=== PATIENT | male | born 1950 | race Caucasian/White ===

== ENCOUNTER 2016-12-13 11:12 | Outpatient (CLI) | payer MEDICARE, OTHER | END 2016-12-13 11:13 | disposition home or self-care (01) | DX: E11.65 Type 2 diabetes mellitus with hyperglycemia (principal); Z79.899 Other long term (current) drug therapy ==

== ENCOUNTER 2017-03-23 10:20 | Outpatient (CLI) | payer MEDICARE, OTHER | END 2017-03-23 10:21 | disposition home or self-care (01) | DX: E11.9 Type 2 diabetes mellitus without complications (principal); Z79.899 Other long term (current) drug therapy ==

== ENCOUNTER 2017-07-09 10:01 | Outpatient (CLI) | payer MEDICARE, OTHER ==
[2017-07-09 18:06] LABS: BASOPHILS # (AUTO) 0.1 10^3/uL (0.0-0.1); EOSINOPHILS # (AUTO) 0.6 10^3/uL (0.0-0.7); EOSINOPHILS % (AUTO) 8.3 %; HCT - HEMATOCRIT 42.7 % (42.0-52.0); HGB - HEMOGLOBIN 14.5 g/dL (14.0-18.0); LYMPHOCYTES # (AUTO) 1.9 10^3/uL (1.5-3.5); LYMPHOCYTES % (AUTO) 26.8 %; MEAN CORPUSCULAR HEMOGLOBIN 30.4 pg (27.0-31.0); MEAN CORPUSCULAR VOLUME 89.5 fL (80.0-94.0); MEAN PLATELET VOLUME 8.6 fL (7.4-11.4); MONOCYTES # (AUTO) 0.7 10^3/uL (0.0-1.0); MONOCYTES % (AUTO) 10.3 %; NEUTROPHILS # (AUTO) 3.9 10^3/uL (1.5-6.6); NEUTROPHILS % (AUTO) 53.6 %; RED BLOOD COUNT 4.77 10^6/uL (4.70-6.10); RED CELL DISTRIBUTION WIDTH 15.4 % (12.0-15.0); UNCORRECTED WHITE BLOOD COUNT 7.2 x10^3/uL; WHITE BLOOD COUNT 7.2 x10^3/uL (4.8-10.8)
[2017-07-09 19:12] LABS: ALBUMIN/GLOBULIN RATIO 1.5 (1.0-2.2); BILIRUBIN,TOTAL 1.4 mg/dL (0.2-1.0); BUN - BLOOD UREA NITROGEN 16 mg/dL (6-20); CALCIUM 9.3 mg/dL (8.5-10.3); CARBON DIOXIDE - CO2 27 mmol/L (21-32); CHLORIDE 97 mmol/L (101-111); CHOLESTEROL 112 mg/dL; CREATININE 0.7 mg/dL (0.6-1.2); GFR - MDRD 113 (>89); GLUCOSE 117 mg/dL (70-100); HDL CHOLESTEROL 56 mg/dL; POTASSIUM 4.1 mmol/L (3.5-5.0); SODIUM 133 mmol/L (135-145); TOTAL PROTEIN 7.4 g/dL (6.7-8.2); TRIGLYCERIDES 39 mg/dL
[2017-07-09 19:39] LABS: LDL CHOLESTEROL,DIRECT 47 mg/dL
== END 2017-07-09 10:02 | disposition home or self-care (01) ==
LOC: LAB.F 10:01
PROVIDERS: ATTEND Physician Assistant Medical
DX: E10.65 Type 1 diabetes mellitus with hyperglycemia (principal); Z12.5 Encounter for screening for malignant neoplasm of prostate; E55.9 Vitamin D deficiency, unspecified; E03.9 Hypothyroidism, unspecified; E78.2 Mixed hyperlipidemia; Z79.899 Other long term (current) drug therapy
CPT/HCPCS: 36415; 80053; 80061; 82306; 83721; 84443; 85025; G0103; 84153

== ENCOUNTER 2017-08-06 08:00 | Outpatient (CLI) | payer MEDICARE, OTHER ==
[2017-08-06 14:25] LABS: ALBUMIN/GLOBULIN RATIO 1.3 (1.0-2.2); BILIRUBIN,TOTAL 0.7 mg/dL (0.2-1.0); BUN - BLOOD UREA NITROGEN 18 mg/dL (6-20); CALCIUM 9.6 mg/dL (8.5-10.3); CARBON DIOXIDE - CO2 29 mmol/L (21-32); CHLORIDE 98 mmol/L (101-111); CHOL/HDL RATIO 2.2 (<5.0); CHOLESTEROL 128 mg/dL; CREATININE 0.7 mg/dL (0.6-1.2); GFR - MDRD 112 (>89); GLUCOSE 109 mg/dL (70-100); HDL CHOLESTEROL 58 mg/dL; LDL CHOLESTEROL,DIRECT 52 mg/dL; LDL/HDL RATIO 1.1 (<3.6); SODIUM 135 mmol/L (135-145); TOTAL PROTEIN 7.2 g/dL (6.7-8.2); TRIGLYCERIDES 43 mg/dL; VLDL CHOLESTEROL 9 mg/dL
== END 2017-08-06 08:01 | disposition home or self-care (01) ==
LOC: LAB.F 08:00
PROVIDERS: ATTEND Internal Medicine Cardiovascular Disease
DX: R07.89 Other chest pain (principal); E78.2 Mixed hyperlipidemia; I10 Essential (primary) hypertension; E11.40 Type 2 diabetes mellitus with diabetic neuropathy, unspecified; Q21.1 Atrial septal defect
CPT/HCPCS: 36415; 80053; 80061

== ENCOUNTER 2018-01-07 08:27 | Outpatient (CLI) | payer MEDICARE, OTHER ==
[2018-01-07 11:27] LABS: HB2 TOTAL 15.4 g/dL; HEMOGLOBIN A1C 1.15 g/dL
[2018-01-07 13:38] LABS: ALBUMIN 3.8 g/dL (3.2-5.5); ALBUMIN/GLOBULIN RATIO 1.2 (1.0-2.2); BILIRUBIN,TOTAL 0.9 mg/dL (0.2-1.0); CREATININE 0.8 mg/dL (0.6-1.2); TOTAL PROTEIN 6.9 g/dL (6.7-8.2)
== END 2018-01-07 08:28 | disposition home or self-care (01) ==
LOC: LAB.F 08:27
PROVIDERS: ATTEND Physician Assistant Medical
DX: E10.621 Type 1 diabetes mellitus with foot ulcer (principal); Z79.899 Other long term (current) drug therapy
CPT/HCPCS: 36415; 80053; 83036

== ENCOUNTER 2018-01-23 09:19 | Day surgery (SDC) | payer MEDICARE, OTHER ==
[2018-01-23] MEDS ORDERED: LACTATED RINGERS 1,000 ML IV ONE (09:53)
[2018-01-23] MEDS ORDERED: fentaNYL 100 MCG/2 ML VIAL IVP ONE (10:54)
[2018-01-23] MEDS ORDERED: MIDAZOLAM 2 MG/2 ML VIAL IVP ONE (10:54)
[2018-01-23 11:57] VITALS: BP 133/71
--- NOTE | 2018-01-29 20:01 | PROCEDURE REPORT ---
DATE OF SERVICE: 01/23/2018 Physician: Mckayla Goodson MD PROCEDURE PERFORMED: Colonoscopy. ENDOSCOPIST: Mckayla Goodson MD PRIMARY CARE: Yobani Rosales MD INDICATION: Colon cancer screening. PREMEDICATIONS 1. Fentanyl 150 mcg. 2. Versed 6 mg IV titration. TOTAL SEDATION TIME: Twenty-nine minutes. DESCRIPTION OF PROCEDURE: After informed consent was obtained, the patient was placed in the left lateral decubitus position. Video colonoscope was introduced in the rectum and slowly advanced to the cecum. On slow withdrawal, mucosa was carefully examined. Scope was removed. The patient tolerated the procedure well. BLOOD LOSS: None. COMPLICATIONS: None. FINDINGS 1. Very tortuous colon with an incomplete prep that is quite dirty in places. 2. Ascending colon polyp, 5 mm, jumbo biopsied and removed completely. The patient had a polyp that I was able to find amidst the somewhat dirty prep. We will see if this is adenomatous. Regardless, the guidelines would dictate that he has followup colonoscopy in 1-2 years, because of the poor prep. cc: Yobani Rosales MD TD: 01/29/2018 20:00
== END 2018-01-23 09:20 | disposition home or self-care (01) ==
LOC: SDS 09:19
PROVIDERS: ATTEND Internal Medicine
PROC: 0DBK8ZX Excision of Ascending Colon, Via Natural or Artificial Opening Endoscopic, Diagnostic (ICD-10-PCS; principal; 2018-01-23 10:30)
DX: Z12.11 Encounter for screening for malignant neoplasm of colon (principal); K63.5 Polyp of colon; E11.9 Type 2 diabetes mellitus without complications; I10 Essential (primary) hypertension; E78.5 Hyperlipidemia, unspecified; Z87.891 Personal history of nicotine dependence; Z79.4 Long term (current) use of insulin
CPT/HCPCS: 45380; 88305; J7120

== ENCOUNTER 2018-05-03 08:41 | Outpatient (CLI) | payer MEDICARE, OTHER ==
[2018-05-03 19:07] LABS: HB2 TOTAL 14.6 g/dL; HEMOGLOBIN A1C 0.92 g/dL; HEMOGLOBIN A1C % 7.9 % (4.6-6.2)
== END 2018-05-03 08:42 | disposition home or self-care (01) ==
LOC: LAB.F 08:41
PROVIDERS: ATTEND Physician Assistant Medical
DX: Z79.899 Other long term (current) drug therapy (principal); E10.621 Type 1 diabetes mellitus with foot ulcer
CPT/HCPCS: 36415; 82947; 83036

== ENCOUNTER 2018-05-24 15:57 | Emergency (ER) | payer MEDICARE, OTHER ==
[2018-05-24] MEDS ORDERED: BUFFERED LIDOCAINE 10 ML SYRINGE SUBQ STA (16:06)
--- NOTE | 2018-05-24 16:08 | ED Physician Documentation ---
PD HPI UPPER EXT INJURY - Stated complaint Stated Complaint: L THUMB INJ - Chief complaint Chief Complaint: Laceration - History obtained from History obtained from: Patient - History of Present Illness Location: Left (This is a right-handed gentleman who is up-to-date on tetanus, he was using a log splitter at home and impacted the left thumb and he has a lot of pain there with something wrong with the nail and a laceration.) Review of Systems Constitutional: reports: Reviewed and negative Cardiac: reports: Reviewed and negative Respiratory: reports: Reviewed and negative PD PAST MEDICAL HISTORY - Past Medical History Cardiovascular: High cholesterol Respiratory: None Endocrine/Autoimmune: Type 2 diabetes, HyPOthyroidism GI: C.difficile : Benign prostate hypertrophy HEENT: Chronic vision loss Psych: None Musculoskeletal: None Derm: None - Past Surgical History General: Appendectomy, Splenectomy HEENT: Tonsil/Adenoidectomy Derm: Debridement - Present Medications Home Medications: Ambulatory Orders Medication Instructions Recorded Confirmed Cholecalciferol [Vitamin D3] 3,000 units PO DAILY 04/23/13 01/22/18 Cyanocobalamin (Vitamin B-12) 1 each PO DAILY 04/23/13 01/23/18 [Vitamin B-12] Insulin Aspart [Novolog] 100 unit SQ DAILY PRN 04/23/13 01/23/18 Insulin Glargine,Hum.rec.anlog 30 units SUBQ HS 04/23/13 01/23/18 [Lantus] Insulin Glargine,Hum.rec.anlog 30 units SUBQ QAM 04/23/13 01/23/18 [Lantus] Levothyroxine [Synthroid] 175 mcg PO QDAC 04/23/13 01/23/18 Lisinopril 10 mg PO DAILY 04/23/13 01/23/18 Multivitamin [Multivitamins] 1 each PO DAILY 04/23/13 01/23/18 Clopidogrel [Plavix] 75 mg PO DAILY 01/22/18 01/23/18 Atorvastatin [Lipitor] 8 DAILY 01/23/18 Cephalexin [Keflex] 500 mg PO QID #40 capsule 05/24/18 HYDROcod/ACETAM 5/325 [[place] 5/325] 1 - 2 ea PO Q6H PRN #10 tablet 05/24/18 - Allergies Allergies/Adverse Reactions: Allergies Allergy/AdvReac Type Severity Reaction Status Date / Time No Known Drug Allergies Allergy Verified 05/24/18 16:05 - Social History Smoking Status: Former smoker PD ED PE NORMAL - Vitals Vital signs reviewed: Yes - General General: Alert and oriented X 3, No acute distress - Extremities Extremities: Other (Left thumb: There is a 100% subungual hemorrhage with elevation of the nail and on the radial side there is a 1 cm duration proximal and anterior to the nailbed with tenderness and swelling of the digit but normal neurovascular status of the digit.) - Neuro Neuro: Alert and oriented X 3, Normal speech Results - Vitals Vitals: Vital Signs - 24 hr 05/24/18 16:03 Temperature 36.8 C Heart Rate 80 Respiratory 16 Rate Blood Pressure 158/86 H O2 Saturation 99 Oxygen O2 Source Room air - Labs Labs: Laboratory Tests 05/24/18 16:27 POC Whole Bld Glucose 356 H - Rads (name of study) L thumb XR Radiology: EMP read contemporaneously (Comminuted tuft frx) Procedures - Laceration (location) Left thum,b Length in cm: 1 Wound type: Linear Neurovascular status: Sensory intact, Motor intact, Vascular intact Anesthesia: Lidocaine 1%, With bicarb (Digital block) Wound Preparation: Hibiclens, Irrigated copiously NS Skin layer closure: Interrupted, Other (The nail was trephinated using electrocautery, it was pretty floppy at the base, and I suspect it may come off eventually but it was left in place now to form a splint for the fracture. On the radial side of the thumb there was a laceration which was closed with 44-0 Ethilon sutures that were interrupted) Other: Patient tolerated well, Tetanus UTD Complexity: Simple PD MEDICAL DECISION MAKING - Sepsis Event Vital Signs: Vital Signs - 24 hr 05/24/18 16:03 Temperature 36.8 C Heart Rate 80 Respiratory 16 Rate Blood Pressure 158/86 H O2 Saturation 99 Oxygen O2 Source Room air Departure - Departure Disposition: 01 Home, Self Care Clinical Impression: Open fracture of thumb Qualifiers: Encounter type: sequela Phalanx: distal Fracture alignment: displaced Laterality: left Qualified Code(s): S62.522S - Displaced fracture of distal phalanx of left thumb, sequela Thumb laceration Qualifiers: Encounter type: initial encounter Damage to nail status: with damage Foreign body presence: without foreign body Laterality: left Qualified Code(s): S61.112A - Laceration without foreign body of left thumb with damage to nail, initial encounter Subungual hematoma of fifth toe of left foot Qualifiers: Encounter type: initial encounter Qualified Code(s): S90.222A - Contusion of left lesser toe(s) with damage to nail, initial encounter Condition: Good Record reviewed to determine appropriate education?: Yes Instructions: ED Fx Hand Open Prescriptions: Cephalexin [Keflex] 500 mg PO QID #40 capsule HYDROcod/ACETAM 5/325 [[place] 5/325] 1 - 2 ea PO Q6H PRN #10 tablet PRN Reason: Pain Comments: Follow-up with Dr. murdock in 3 days or so for a wound check and again in 2 weeks for suture removal. Come back for any signs of infection which would include: Redness, swelling, drainage, increased pain, or fevers.
[2018-05-24] MEDS ORDERED: cephALEXin 250 MG CAPSULE PO STA (16:21)
--- NOTE | 2018-05-24 16:48 | XRAY Report ---
Procedure Date: 05/24/2018 Accession Number: [id number] / [id number] Procedure: XR - Finger(s) LT CPT Code: FULL RESULT: EXAM: LEFT THUMB DIGIT RADIOGRAPHY EXAM DATE: 05/24/2018 04:19 PM. CLINICAL HISTORY: Log splitter injury. Laceration distal thumb. COMPARISON: Left third finger 01/15/2012. No prior left thumb study. TECHNIQUE: 3 views. FINDINGS: Bones: Acute comminuted slightly displaced fractures extending through the entirety of the first distal phalanx, with intra-articular extension. Fracture fragments are distracted by up to 2 mm, without angulation. Joints: Normal. No subluxations. Soft Tissues: Edema at the fracture site. Stable vascular clips or extremely tiny linear metallic foreign bodies within the superficial aspect of the thenar eminence. IMPRESSION: 1. Comminuted fracture first distal phalanx. 2. Stable two linear metallic foreign bodies or surgical clips superficial aspect of the thenar eminence. RADIA
[2018-05-24 17:04] VITALS: BP 140/82
== END 2018-05-24 17:02 | disposition home or self-care (01) ==
LOC: ED 15:57
DX: S62.522A Displaced fracture of distal phalanx of left thumb, initial encounter for closed fracture (principal); S61.112A Laceration without foreign body of left thumb with damage to nail, initial encounter; S60.112A Contusion of left thumb with damage to nail, initial encounter; W45.8XXA Other foreign body or object entering through skin, initial encounter; W27.8XXA Contact with other nonpowered hand tool, initial encounter; Y92.009 Unspecified place in unspecified non-institutional (private) residence as the place of occurrence of the external cause; E78.00 Pure hypercholesterolemia, unspecified; E11.9 Type 2 diabetes mellitus without complications; Z87.891 Personal history of nicotine dependence; Z90.81 Acquired absence of spleen
CPT/HCPCS: 11740; 12001; 73140; 99283; A9270

== ENCOUNTER 2018-08-22 07:37 | Outpatient (CLI) | payer MEDICARE, OTHER ==
[2018-08-22 10:34] LABS: BASOPHILS % (AUTO) 0.6 %; EOSINOPHILS # (AUTO) 0.7 10^3/uL (0.0-0.7); EOSINOPHILS % (AUTO) 8.9 %; HGB - HEMOGLOBIN 14.2 g/dL (14.0-18.0); LYMPHOCYTES # (AUTO) 1.6 10^3/uL (1.5-3.5); LYMPHOCYTES % (AUTO) 21.9 %; MEAN CORPUSCULAR HEMOGLOBIN 30.3 pg (27.0-31.0); MEAN CORPUSCULAR HGB CONC 34.4 g/dL (32.0-36.0); MEAN PLATELET VOLUME 8.7 fL (7.4-11.4); MONOCYTES # (AUTO) 0.8 10^3/uL (0.0-1.0); MONOCYTES % (AUTO) 11.2 %; NEUTROPHILS # (AUTO) 4.3 10^3/uL (1.5-6.6); NEUTROPHILS % (AUTO) 57.4 %; PLT - PLATELET COUNT 402 10^3/uL (130-450); RED BLOOD COUNT 4.69 10^6/uL (4.70-6.10); RED CELL DISTRIBUTION WIDTH 14.8 % (12.0-15.0); WHITE BLOOD COUNT 7.5 x10^3/uL (4.8-10.8)
[2018-08-22 10:51] LABS: ALBUMIN/GLOBULIN RATIO 1.2 (1.0-2.2); ALKALINE PHOSPHATASE 117 IU/L (42-121); ALT ALANINE AMINOTRANSFERASE 48 IU/L (10-60); AST ASPARTATE AMINOTRANSFERASE 44 IU/L (10-42); BILIRUBIN,TOTAL 0.9 mg/dL (0.2-1.0); BUN - BLOOD UREA NITROGEN 15 mg/dL (6-20); CALCIUM 9.4 mg/dL (8.5-10.3); CARBON DIOXIDE - CO2 29 mmol/L (21-32); CHLORIDE 96 mmol/L (101-111); CHOLESTEROL 119 mg/dL; CREATININE 0.8 mg/dL (0.6-1.2); GFR - MDRD 96 (>89); GLUCOSE 178 mg/dL (70-100); HDL CHOLESTEROL 59 mg/dL; SODIUM 133 mmol/L (135-145); TOTAL PROTEIN 7.3 g/dL (6.7-8.2)
[2018-08-22 11:10] LABS: LDL CHOLESTEROL,DIRECT 48 mg/dL; LDLD/HDL RATIO 0.8 (<3.6)
[2018-08-22 13:36] LABS: HB2 TOTAL 14.7 g/dL; HEMOGLOBIN A1C 0.98 g/dL; HEMOGLOBIN A1C % 8.3 % (4.6-6.2)
== END 2018-08-22 07:38 | disposition home or self-care (01) ==
LOC: LAB.F 07:37
PROVIDERS: ATTEND Physician Assistant Medical
DX: Z79.899 Other long term (current) drug therapy (principal); E55.9 Vitamin D deficiency, unspecified; E03.9 Hypothyroidism, unspecified; E78.2 Mixed hyperlipidemia; E10.621 Type 1 diabetes mellitus with foot ulcer
CPT/HCPCS: 36415; 80053; 80061; 82306; 83036; 83721; 84443; 85025

== ENCOUNTER 2018-09-17 12:02 | Outpatient (CLI) | payer MEDICARE, OTHER ==
--- NOTE | 2018-09-17 14:42 | XRAY Report ---
Reason: HYPONATREMIA Procedure Date: 09/17/2018 Accession Number: [id number] / [id number] Procedure: XR - Chest 2 View X-Ray CPT Code: 91412 FULL RESULT: EXAM: CHEST RADIOGRAPHY EXAM DATE: 09/17/2018 12:11 PM. CLINICAL HISTORY: Hyponatremia. COMPARISON: CHEST 2 VIEW PA/LAT 10/22/2014 12:45 PM. TECHNIQUE: 2 views. FINDINGS: Lungs/Pleura: No focal opacities evident. No pleural effusion. No pneumothorax. Low normal volumes. Mediastinum: Heart and mediastinal contours are unremarkable. Other: None. IMPRESSION: Stable exam with no acute cardiopulmonary abnormality. RADIA
== END 2018-09-17 12:03 | disposition home or self-care (01) ==
LOC: DI 12:02
PROVIDERS: ATTEND Physician Assistant Medical
DX: E87.1 Hypo-osmolality and hyponatremia (principal); Z87.891 Personal history of nicotine dependence
CPT/HCPCS: 71046

== ENCOUNTER 2018-12-11 08:55 | Outpatient (CLI) | payer MEDICARE, OTHER ==
[2018-12-12 19:33] LABS: HB2 TOTAL 14.5 g/dL; HEMOGLOBIN A1C 0.89 g/dL; HEMOGLOBIN A1C % 7.8 % (4.6-6.2)
== END 2018-12-11 08:56 | disposition home or self-care (01) ==
LOC: LAB.F 08:55
PROVIDERS: ATTEND Physician Assistant Medical
DX: E10.621 Type 1 diabetes mellitus with foot ulcer (principal); Z79.899 Other long term (current) drug therapy
CPT/HCPCS: 36415; 82947; 83036

== ENCOUNTER 2019-04-03 07:55 | Outpatient (CLI) | payer MEDICARE, OTHER ==
--- NOTE | 2019-04-03 10:57 | Ultrasound Report ---
Reason: ENCOUNTER FOR SCREENING FOR CARDIOVASCULAR DISORDE Procedure Date: 04/03/2019 Accession Number: [id number] / [id number] Procedure: US - Aorta Screening CPT Code: FULL RESULT: EXAM: AORTIC DOPPLER ULTRASOUND EXAM DATE: 04/03/2019 08:31 AM. CLINICAL HISTORY: Encounter for screening for cardiovascular disorder. COMPARISON: ABDOMEN/PELVIS W/ 03/05/2014 1:58 PM. TECHNIQUE: Real-time sonographic imaging of retroperitoneal vascular structures, including color-flow, Doppler flow and spectral analysis was performed by the shoe stock associate. Multiple sales representative canvas products static images were saved for review. FINDINGS: Aorta: The proximal aorta is obscured by bowel gas on both supine and decubitus positioning. The mid and distal abdominal aorta was adequately visualized. No evidence for abdominal aortic aneurysm of the visualized aorta. Aorta: Proximal: Obscured by bowel. Mid: Transverse 1.7 x 1.9 cm. Distal: Transverse 1.7 x 1.9 cm. Caliber: WNL: Yes. Plaque visualized: No. Iliacs: Right Iliac: Transverse 1 x 1 cm. Left Iliac: Transverse 1 x 1.1 cm. Iliac Vessels: The visualized proximal common iliac arteries are normal in caliber. Other: None. IMPRESSION: Nonvisualization of the proximal aorta due to unavoidable bowel gas. No abdominal aortic aneurysm of the mid or distal aorta. RADIA
== END 2019-04-03 07:56 | disposition home or self-care (01) ==
LOC: DI 07:55
PROVIDERS: ATTEND Family Medicine
DX: Z13.6 Encounter for screening for cardiovascular disorders (principal); Z87.891 Personal history of nicotine dependence
CPT/HCPCS: 76706

== ENCOUNTER 2019-04-03 16:00 | Emergency (ER) | payer MEDICARE, OTHER ==
[2019-04-03 16:41] LABS: BASOPHILS % (AUTO) 0.3 %; EOSINOPHILS % (AUTO) 0.3 %; HGB - HEMOGLOBIN 13.4 g/dL (14.0-18.0); LYMPHOCYTES # (AUTO) 1.3 10^3/uL (1.5-3.5); LYMPHOCYTES % (AUTO) 9.7 %; MEAN CORPUSCULAR HEMOGLOBIN 28.8 pg (27.0-31.0); MEAN CORPUSCULAR VOLUME 87.3 fL (80.0-94.0); MEAN PLATELET VOLUME 8.2 fL (7.4-11.4); MONOCYTES # (AUTO) 1.4 10^3/uL (0.0-1.0); MONOCYTES % (AUTO) 10.3 %; NEUTROPHILS % (AUTO) 79.4 %; PLT - PLATELET COUNT 362 10^3/uL (130-450); RED BLOOD COUNT 4.64 10^6/uL (4.70-6.10); RED CELL DISTRIBUTION WIDTH 14.5 % (12.0-15.0); WHITE BLOOD COUNT 13.9 x10^3/uL (4.8-10.8)
[2019-04-03] MEDS ORDERED: ACETAMINOPHEN 325 MG TABLET PO STA (16:52)
[2019-04-03 16:53] LABS: ALBUMIN 3.9 g/dL (3.2-5.5); ALBUMIN/GLOBULIN RATIO 1.1 (1.0-2.2); BILIRUBIN,TOTAL 1.3 mg/dL (0.2-1.0); CALCIUM 8.8 mg/dL (8.5-10.3); CREATININE 0.8 mg/dL (0.6-1.2); TOTAL PROTEIN 7.3 g/dL (6.7-8.2)
[2019-04-03 17:03] LABS: BILIRUBIN,URINE NEGATIVE (NEGATIVE); GLUCOSE, URINE (UA) 100 mg/dL (NEGATIVE); KETONES,URINE (UA) TRACE mg/dL (NEGATIVE); LEUKOCYTE ESTERASE, URINE NEGATIVE (NEGATIVE); NITRITE,URINE NEGATIVE (NEGATIVE); OCCULT BLOOD,URINE NEGATIVE (NEGATIVE); PH,URINE 6.5 PH (5.0-7.5); PROTEIN,URINE TRACE mg/dL (NEGATIVE); UROBILINOGEN,URINE 1 (NORMAL) E.U./dL (NORMAL)
[2019-04-03 17:05] LABS: CLARITY,URINE CLEAR (CLEAR)
[2019-04-03 18:25] VITALS: BP 103/62
[2019-04-03] MEDS ORDERED: cephALEXin 250 MG CAPSULE PO STA (18:31)
--- NOTE | 2019-04-03 18:54 | ED Physician Documentation ---
History of Present Illness - Stated complaint Stated Complaint: FEVER,CHILLS - Chief complaint Chief Complaint: Fever - History obtained from History obtained from: Patient - Additonal information Additional information: The patient is a 68-year-old insulin-dependent diabetic male who is status post splenectomy for trauma, who presents with fever and chills intermittently for the past week. He reports myalgias and slight headache. He had diarrhea 2 weeks ago that lasted for about 5 days and resolved after taking Imodium. He denies abdominal pain, vomiting, cough, shortness of breath, or dysuria. He reports history of similar symptoms in the past with foot infections. He was seen by his nurse practitioner in clinic today and was sent here for further evaluation. Review of Systems Constitutional: reports: Fever, Chills, Myalgias Eyes: denies: Irritation Ears: denies: Ear pain Nose: denies: Congestion Throat: denies: Sore throat Cardiac: denies: Chest pain / pressure Respiratory: denies: Dyspnea, Cough GI: denies: Abdominal Pain, Nausea, Vomiting, Diarrhea (2 weeks ago, but not currently.) : denies: Dysuria Skin: denies: Rash Musculoskeletal: denies: Back pain Neurologic: reports: Numbness (Diabetic neuropathy.), Headache (intermittently.). denies: Focal weakness PD PAST MEDICAL HISTORY - Past Medical History Past Medical History: Yes Cardiovascular: High cholesterol Respiratory: None Endocrine/Autoimmune: Type 2 diabetes, HyPOthyroidism GI: C.difficile : Benign prostate hypertrophy HEENT: Chronic vision loss Psych: None Musculoskeletal: None Derm: None - Past Surgical History Past Surgical History: Yes General: Appendectomy, Splenectomy HEENT: Tonsil/Adenoidectomy Derm: Debridement - Present Medications Home Medications: Ambulatory Orders Medication Instructions Recorded Confirmed Cholecalciferol [Vitamin D3] 2,000 units PO DAILY 04/23/13 04/04/19 Insulin Glargine,Hum.rec.anlog 30 units SUBQ BID 04/23/13 04/04/19 [Lantus] Lisinopril 10 mg PO DAILY 04/23/13 04/04/19 Multivitamin [Multivitamins] 1 each PO DAILY 04/23/13 04/04/19 Clopidogrel [Plavix] 75 mg PO DAILY 01/22/18 04/04/19 cephALEXin [Cephalexin] 500 mg PO Q8HR #20 tablet 04/03/19 04/04/19 Atorvastatin Calcium 80 mg PO DAILY 04/04/19 04/04/19 Cyanocobalamin (Vitamin B-12) 1,000 mcg PO DAILY 04/04/19 04/04/19 [Vitamin B-12] Insulin Lispro [Humalog] 10 - 30 units SUBQ AC 04/04/19 04/04/19 Levothyroxine Sodium 175 mcg PO QDAC 04/04/19 04/04/19 - Allergies Allergies/Adverse Reactions: Allergies Allergy/AdvReac Type Severity Reaction Status Date / Time No Known Drug Allergies Allergy Verified 04/04/19 16:02 - Social History Does the pt smoke?: No Smoking Status: Never smoker Does the pt drink ETOH?: Yes Does the pt have substance abuse?: No - Immunizations Immunizations are current?: Yes Immunizations: TDAP current <10years - POLST Patient has POLST: No PD ED PE NORMAL - Vitals Vital signs reviewed: Yes (systolic hypertension) - General General: Alert and oriented X 3, Well developed/nourished - HEENT HEENT: Atraumatic, EOMI, Pharynx benign - Neck Neck: Supple, no meningeal sign, No adenopathy, No JVD - Cardiac Cardiac: RRR, No murmur - Respiratory Respiratory: No respiratory distress, Clear bilaterally - Abdomen Abdomen: Soft, Non tender - Back Back: No CVA TTP - Derm Derm: No rash - Extremities Extremities: No edema, No calf tenderness / cord, Other (There is a callus on the plantar aspect of the left great toe, with slight surrounding erythema. There is no lymphangitic streaking.) - Neuro Neuro: Alert and oriented X 3, No motor deficit, Normal speech, Other (Decreased light-touch sensation in the feet, consistent with diabetic neuropathy.) Results - Vitals Vitals: Oxygen O2 Source Room air - Labs Labs: Microbiology 04/03/19 16:33 Blood Culture - Preliminary Blood 04/03/19 16:30 Blood Culture - Preliminary Blood Laboratory Tests 04/03/19 04/03/19 04/03/19 16:33 16:33 16:33 WBC 13.9 H RBC 4.64 L Hgb 13.4 L Hct 40.6 L MCV 87.3 MCH 28.8 MCHC 33.0 RDW 14.5 Plt Count 362 MPV 8.2 Neut # (Auto) 11.0 H Lymph # (Auto) 1.3 L [place] # (Auto) 1.4 H Eos # (Auto) 0.0 Baso # (Auto) 0.0 Absolute Nucleated RBC 0.00 Nucleated RBC % 0.0 Sodium 129 L Potassium 3.9 Chloride 91 L Carbon Dioxide 26 Anion Gap 12.0 BUN 17 Creatinine 0.8 Estimated GFR (MDRD) 96 Glucose 165 H Lactic Acid 1.2 Calcium 8.8 Total Bilirubin 1.3 H AST 44 H ALT 44 Alkaline Phosphatase 83 Total Protein 7.3 Albumin 3.9 Globulin 3.4 Albumin/Globulin Ratio 1.1 Lipase 19 L Urine Color Urine Clarity Urine pH Ur Specific [place] Urine Protein Urine Glucose (UA) Urine Ketones Urine Occult Blood Urine Nitrite Urine Bilirubin Urine Urobilinogen Ur Leukocyte Esterase Ur Microscopic Review Urine Culture Comments 04/03/19 16:34 WBC RBC Hgb Hct MCV MCH MCHC RDW Plt Count MPV Neut # (Auto) Lymph # (Auto) [place] # (Auto) Eos # (Auto) Baso # (Auto) Absolute Nucleated RBC Nucleated RBC % Sodium Potassium Chloride Carbon Dioxide Anion Gap BUN Creatinine Estimated GFR (MDRD) Glucose Lactic Acid Calcium Total Bilirubin AST ALT Alkaline Phosphatase Total Protein Albumin Globulin Albumin/Globulin Ratio Lipase Urine Color YELLOW Urine Clarity CLEAR Urine pH 6.5 Ur Specific [place] 1.010 Urine Protein TRACE Urine Glucose (UA) 100 H Urine Ketones TRACE Urine Occult Blood NEGATIVE Urine Nitrite NEGATIVE Urine Bilirubin NEGATIVE Urine Urobilinogen 1 (NORMAL) Ur Leukocyte Esterase NEGATIVE Ur Microscopic Review NOT INDICATED Urine Culture Comments NOT INDICATED PD MEDICAL DECISION MAKING - ED course Complexity details: reviewed results, re-evaluated patient, sakshi acuna d/w patient, d/w family ED course: The patient's presentation is significant for fever in an insulin-dependent diabetic who is status post splenectomy. The most likely source of infection is cellulitis of his left foot associated with a callus on his left great toe. His white count is elevated at 13.9. Urinalysis is negative, revealing no sign of urinary tract infection. He has no respiratory symptoms to suggest pneumonia. Lactate level is normal. Blood cultures 2 were drawn and are pending. Treatment in the emergency department included administration of acetaminophen 650 mg orally and cephalexin 500 mg orally. He is being discharged with prescription for cephalexin. I discussed with him and his family the results of the workup, antibiotic treatment and outpatient follow-up, as well as potentially worrisome signs or symptoms that should prompt reevaluation in the emergency department. Departure - Departure Disposition: 01 Home, Self Care Clinical Impression: S/P splenectomy, Cellulitis of left foot, Hyponatremia Fever Qualifiers: Fever type: unspecified Qualified Code(s): R50.9 - Fever, unspecified Condition: Stable Instructions: ED Foot Care Diabetic Follow-Up: Harry He MD [Provider Admit Priv/Credential] - Prescriptions: cephALEXin [Cephalexin] 500 mg PO Q8HR #20 tablet Comments: Take cephalexin 3 times daily as prescribed. Clean your feet with warm soapy water at least daily. Follow-up with a coal unloader as soon as possible. Call to schedule an appointment. Follow-up with your primary physician within 2 weeks. Call to schedule an appointment. Return to the emergency department if you develop increasing fever, abdominal pain, or otherwise worsening symptoms. Discharge Date/Time: 04/03/19 18:58
== END 2019-04-03 18:58 | disposition home or self-care (01) ==
LOC: ED 16:00
DX: L03.116 Cellulitis of left lower limb (principal); L84 Corns and callosities; E87.1 Hypo-osmolality and hyponatremia; Z90.81 Acquired absence of spleen; E11.40 Type 2 diabetes mellitus with diabetic neuropathy, unspecified; Z79.4 Long term (current) use of insulin; E03.9 Hypothyroidism, unspecified; Z79.02 Long term (current) use of antithrombotics/antiplatelets; Z13.6 Encounter for screening for cardiovascular disorders; Z87.891 Personal history of nicotine dependence
CPT/HCPCS: 36415; 76706; 80053; 81003; 83605; 83690; 85025; 87040; 87077; 87181; 99283; A9270; 81001; 87086

== ENCOUNTER 2019-04-04 15:31 | Inpatient (IN) | payer MEDICARE, OTHER ==
--- NOTE | 2019-04-04 16:18 | ED Physician Documentation ---
History of Present Illness - Stated complaint Stated Complaint: FEVER - Chief complaint Chief Complaint: Fever - History obtained from History obtained from: Patient, Family - History of Present Illness Timing: How many days ago (2) Pain level max: 0 Pain level now: 0 - Additonal information Additional information: 68-year-old male with diabetic foot wounds, seen here yesterday for fever. 2 blood cultures are positive and was called back to the emergency department. Patient will need to be admitted. Afebrile currently. States he is feeling better since starting antibiotics. Review of Systems Ten Systems: 10 systems reviewed and negative Constitutional: reports: Fever, Chills Throat: denies: Sore throat Cardiac: denies: Chest pain / pressure Respiratory: denies: Cough GI: denies: Abdominal Pain, Nausea, Vomiting Skin: denies: Rash Musculoskeletal: denies: Neck pain, Back pain Neurologic: denies: Headache PD PAST MEDICAL HISTORY - Past Medical History Cardiovascular: High cholesterol Respiratory: None Endocrine/Autoimmune: Type 2 diabetes, HyPOthyroidism GI: C.difficile : Benign prostate hypertrophy HEENT: Chronic vision loss Psych: None Musculoskeletal: None Derm: None - Past Surgical History Past Surgical History: Yes General: Appendectomy, Splenectomy HEENT: Tonsil/Adenoidectomy Derm: Debridement - Present Medications Home Medications: Ambulatory Orders Medication Instructions Recorded Confirmed Cholecalciferol [Vitamin D3] 2,000 units PO DAILY 04/23/13 04/04/19 Insulin Glargine,Hum.rec.anlog 30 units SUBQ BID 04/23/13 04/04/19 [Lantus] Lisinopril 10 mg PO DAILY 04/23/13 04/04/19 Multivitamin [Multivitamins] 1 each PO DAILY 04/23/13 04/04/19 Clopidogrel [Plavix] 75 mg PO DAILY 01/22/18 04/04/19 cephALEXin [Cephalexin] 500 mg PO Q8HR #20 tablet 04/03/19 04/04/19 Atorvastatin Calcium 80 mg PO DAILY 04/04/19 04/04/19 Cyanocobalamin (Vitamin B-12) 1,000 mcg PO DAILY 04/04/19 04/04/19 [Vitamin B-12] Insulin Lispro [Humalog] 10 - 30 units SUBQ AC 04/04/19 04/04/19 Levothyroxine Sodium 175 mcg PO QDAC 04/04/19 04/04/19 - Allergies Allergies/Adverse Reactions: Allergies Allergy/AdvReac Type Severity Reaction Status Date / Time No Known Drug Allergies Allergy Verified 04/04/19 16:02 - Social History Does the pt smoke?: No Smoking Status: Never smoker Does the pt drink ETOH?: Yes Does the pt have substance abuse?: No - Immunizations Immunizations are current?: Yes Immunizations: TDAP current <10years - POLST Patient has POLST: No PD ED PE NORMAL - Vitals Vital signs reviewed: Yes - General General: Alert and oriented X 3, No acute distress, Well developed/nourished - HEENT HEENT: Moist mucous membranes - Neck Neck: Supple, no meningeal sign - Cardiac Cardiac: RRR, Strong equal pulses - Respiratory Respiratory: No respiratory distress, Clear bilaterally - Abdomen Abdomen: Soft, Non tender, Non distended - Derm Derm: Warm and dry - Extremities Extremities: Other (LLE - swollen, erythematous L great toe with prior ulcera tions on plantar aspect. Cellulitis to mid foot. ) - Neuro Neuro: Alert and oriented X 3 - Psych Psych: Normal mood, Normal affect Results - Vitals Vitals: Vital Signs - 24 hr 04/04/19 04/04/19 15:55 16:40 Temperature 36.8 C Heart Rate 99 72 Respiratory 18 14 Rate Blood Pressure 139/74 H 167/87 H O2 Saturation 99 98 Oxygen O2 Source Room air - Labs Labs: Laboratory Tests 04/04/19 04/04/19 04/04/19 16:24 16:24 16:24 WBC 8.8 RBC 5.11 Hgb 15.0 Hct 44.8 MCV 87.7 MCH 29.4 MCHC 33.5 RDW 14.7 Plt Count 405 MPV 8.4 Neut # (Auto) 5.4 Lymph # (Auto) 2.0 [place] # (Auto) 1.2 H Eos # (Auto) 0.2 Baso # (Auto) 0.1 Absolute Nucleated RBC 0.00 Nucleated RBC % 0.1 Manual Slide Review Indicated WBC Morphology NORMAL APPEARANCE Platelet Estimate NORMAL (130-450,000) Platelet Morphology NORMAL APPEARANCE RBC Morph Micro Appear 1+ ACANTHOCYTES ESR Sodium 130 L Potassium 3.6 Chloride 92 L Carbon Dioxide 25 Anion Gap 13.0 BUN 15 Creatinine 0.7 Estimated GFR (MDRD) 112 Glucose 233 H Lactic Acid 1.4 Calcium 9.2 Total Bilirubin 1.3 H AST 45 H ALT 49 Alkaline Phosphatase 102 C-Reactive Protein Total Protein 8.5 H Albumin 4.4 Globulin 4.1 Albumin/Globulin Ratio 1.1 Lipase 20 L Urine Color Urine Clarity Urine pH Ur Specific [place] Urine Protein Urine Glucose (UA) Urine Ketones Urine Occult Blood Urine Nitrite Urine Bilirubin Urine Urobilinogen Ur Leukocyte Esterase Ur Microscopic Review Urine Culture Comments 04/04/19 04/04/19 04/04/19 16:24 16:25 16:42 WBC RBC Hgb Hct MCV MCH MCHC RDW Plt Count MPV Neut # (Auto) Lymph # (Auto) [place] # (Auto) Eos # (Auto) Baso # (Auto) Absolute Nucleated RBC Nucleated RBC % Manual Slide Review WBC Morphology Platelet Estimate Platelet Morphology RBC Morph Micro Appear ESR 2 Sodium Potassium Chloride Carbon Dioxide Anion Gap BUN Creatinine Estimated GFR (MDRD) Glucose Lactic Acid Calcium Total Bilirubin AST ALT Alkaline Phosphatase C-Reactive Protein 6.1 H Total Protein Albumin Globulin Albumin/Globulin Ratio Lipase Urine Color YELLOW Urine Clarity CLEAR Urine pH 6.5 Ur Specific [place] 1.010 Urine Protein NEGATIVE Urine Glucose (UA) 250 H Urine Ketones NEGATIVE Urine Occult Blood NEGATIVE Urine Nitrite NEGATIVE Urine Bilirubin NEGATIVE Urine Urobilinogen 2 H Ur Leukocyte Esterase NEGATIVE Ur Microscopic Review NOT INDICATED Urine Culture Comments NOT INDICATED - Rads (name of study) Left foot x-ray Radiology: Prelim report reviewed, EMP read contemporaneously, See rad report (No acute abnormalities. Severe calcifications, vascular) PD MEDICAL DECISION MAKING - ED course Complexity details: reviewed old records, reviewed results, re-evaluated patient, considered differential, d/w patient, d/w gift consultant ED course: 60-year-old male presents to the emergency department with a cellulitic left foot. 2 positive blood cultures yesterday. Given Zosyn and vancomycin here. Patient and family requested that I call [facility] for potential transfer as his doctors are there. This was done, spoke with house manager and states that they are unable to accept the transfer at this time. Patient will be admitted here. Discussed case with the hospitalist, Dr. Edgar who accepts. This document was made in part using voice recognition software. While efforts are made to proofread this document, sound alike and grammatical errors may occur. Departure - Departure Disposition: 66 [facility] DC/Xfer Clinical Impression: Bacteremia, S/P splenectomy, Cellulitis of left foot Fever Qualifiers: Fever type: unspecified Qualified Code(s): R50.9 - Fever, unspecified Diabetic foot ulcer Qualifiers: Diabetic foot ulcer location: toe Diabetes mellitus type: type 2 Laterality: left Non-pressure ulcer stage: limited to breakdown of skin Qualified Code(s): E11.621 - Type 2 diabetes mellitus with foot ulcer Condition: Stable
[2019-04-04 16:39] LABS: BASOPHILS # (AUTO) 0.1 10^3/uL (0.0-0.1); BASOPHILS % (AUTO) 0.7 %; EOSINOPHILS # (AUTO) 0.2 10^3/uL (0.0-0.7); EOSINOPHILS % (AUTO) 2.5 %; LYMPHOCYTES % (AUTO) 22.5 %; MEAN CORPUSCULAR HEMOGLOBIN 29.4 pg (27.0-31.0); MEAN CORPUSCULAR HGB CONC 33.5 g/dL (32.0-36.0); MEAN CORPUSCULAR VOLUME 87.7 fL (80.0-94.0); MEAN PLATELET VOLUME 8.4 fL (7.4-11.4); MONOCYTES # (AUTO) 1.2 10^3/uL (0.0-1.0); MONOCYTES % (AUTO) 13.5 %; NEUTROPHILS # (AUTO) 5.4 10^3/uL (1.5-6.6); NEUTROPHILS % (AUTO) 60.8 %; PLT - PLATELET COUNT 405 10^3/uL (130-450); RED BLOOD COUNT 5.11 10^6/uL (4.70-6.10); RED CELL DISTRIBUTION WIDTH 14.7 % (12.0-15.0); WHITE BLOOD COUNT 8.8 x10^3/uL (4.8-10.8)
[2019-04-04] MEDS ORDERED: MORPHINE 2 MG/ML SYRINGE IVP PRN (16:43)
[2019-04-04] MEDS ORDERED: ONDANSETRON 4 MG/2 ML VIAL IVP PRN (16:43)
[2019-04-04] MEDS ORDERED: oxyCODONE 5 MG TABLET PO PRN (16:43)
[2019-04-04 16:49] LABS: BILIRUBIN,URINE NEGATIVE (NEGATIVE); GLUCOSE, URINE (UA) 250 mg/dL (NEGATIVE); KETONES,URINE (UA) NEGATIVE (NEGATIVE); LEUKOCYTE ESTERASE, URINE NEGATIVE (NEGATIVE); NITRITE,URINE NEGATIVE (NEGATIVE); OCCULT BLOOD,URINE NEGATIVE (NEGATIVE); PH,URINE 6.5 PH (5.0-7.5); PROTEIN,URINE NEGATIVE (NEGATIVE); UROBILINOGEN,URINE 2 E.U./dL (NORMAL)
[2019-04-04 16:51] LABS: CLARITY,URINE CLEAR (CLEAR)
[2019-04-04 16:51] LABS: ALBUMIN 4.4 g/dL (3.2-5.5); ALBUMIN/GLOBULIN RATIO 1.1 (1.0-2.2); BILIRUBIN,TOTAL 1.3 mg/dL (0.2-1.0); CALCIUM 9.2 mg/dL (8.5-10.3); CREATININE 0.7 mg/dL (0.6-1.2); TOTAL PROTEIN 8.5 g/dL (6.7-8.2)
[2019-04-04 16:54] LABS: PLATELET ESTIMATE, MANUAL NORMAL (130-450,000) (NORMAL); PLATELET MORPHOLOGY NORMAL APPEARANCE (NORMAL); RBC MORPHOLOGY (MULTIPLE) 1+ ACANTHOCYTES (NORMAL)
[2019-04-04] MEDS ORDERED: PIPERACILLIN/TAZOBACTAM 3.375 GM in SODIUM CHLORIDE 0.9% MINIBAG 100 ML IV STA (16:59)
[2019-04-04] MEDS ORDERED: VANCOMYCIN INJ 1 GM in SODIUM CHLORIDE 0.9% 500 ML IV STA (16:59)
--- NOTE | 2019-04-04 17:27 | XRAY Report ---
Reason: L foot swelling, great toe ulcer Procedure Date: 04/04/2019 Accession Number: [id number] / [id number] Procedure: XR - Foot 3 View LT CPT Code: FULL RESULT: EXAM: LEFT FOOT RADIOGRAPHY EXAM DATE: 04/04/2019 05:03 PM. CLINICAL HISTORY: L foot swelling, great toe ulcer. COMPARISON: XR FOOT 2 VIEWS 05/05/2010 4:36 PM. TECHNIQUE: 3 views. FINDINGS: Bones: No acute fractures or suspicious bone lesions. No acute erosions seen. Joints: No subluxations. 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 Soft Tissues: Severe vascular calcifications. IMPRESSION: No acute radiographic abnormalities. Severe vascular calcifications. RADIA
[2019-04-04 17:41] LABS: HB2 TOTAL 15.9 g/dL; HEMOGLOBIN A1C 1.02 g/dL
[2019-04-04] MEDS: SODIUM CHLORIDE 0.9% 1,000 ML IV SCH (18:17)
[2019-04-04] MEDS: SODIUM CHLORIDE FLUSH 0.9% 10 ML SYRINGE IVP SCH (18:17)
[2019-04-04] MEDS ORDERED: VANCOMYCIN INJ 2 GM in SODIUM CHLORIDE 0.9% 500 ML IV ONE ×4 (19:00)
[2019-04-04] MEDS: INSULIN ASPART 300 UNIT/3 ML PEN SUBQ SCH ×2 (19:13→20:45)
[2019-04-04] MEDS: ATORVASTATIN 40 MG TABLET PO SCH (20:45)
[2019-04-04] MEDS: INSULIN GLARGINE 300 UNIT/3 ML PEN SUBQ SCH (20:46)
[2019-04-04] MEDS: MEROPENEM 1 GM in SODIUM CHLORIDE 0.9% MINIBAG 100 ML IV SCH (22:16)
[2019-04-05] MEDS: SODIUM CHLORIDE FLUSH 0.9% 10 ML SYRINGE IVP SCH ×3 (03:28→17:04)
[2019-04-05] MEDS: MEROPENEM 1 GM in SODIUM CHLORIDE 0.9% MINIBAG 100 ML IV SCH ×3 (05:38→23:02)
[2019-04-05 06:06] LABS: BASOPHILS % (AUTO) 0.3 %; EOSINOPHILS # (AUTO) 0.1 10^3/uL (0.0-0.7); EOSINOPHILS % (AUTO) 0.8 %; HGB - HEMOGLOBIN 12.9 g/dL (14.0-18.0); LYMPHOCYTES # (AUTO) 0.4 10^3/uL (1.5-3.5); LYMPHOCYTES % (AUTO) 4.2 %; MEAN CORPUSCULAR HEMOGLOBIN 29.6 pg (27.0-31.0); MEAN CORPUSCULAR HGB CONC 33.9 g/dL (32.0-36.0); MEAN CORPUSCULAR VOLUME 87.2 fL (80.0-94.0); MEAN PLATELET VOLUME 8.9 fL (7.4-11.4); MONOCYTES # (AUTO) 0.4 10^3/uL (0.0-1.0); MONOCYTES % (AUTO) 4.3 %; NEUTROPHILS % (AUTO) 90.4 %; PLT - PLATELET COUNT 328 10^3/uL (130-450); RED BLOOD COUNT 4.37 10^6/uL (4.70-6.10); RED CELL DISTRIBUTION WIDTH 14.2 % (12.0-15.0)
[2019-04-05 06:13] LABS: BUN - BLOOD UREA NITROGEN 11 mg/dL (6-20); CALCIUM 8.3 mg/dL (8.5-10.3); CARBON DIOXIDE - CO2 24 mmol/L (21-32); CHLORIDE 95 mmol/L (101-111); CREATININE 0.7 mg/dL (0.6-1.2); GFR - MDRD 112 (>89); GLUCOSE 225 mg/dL (70-100); SODIUM 132 mmol/L (135-145)
[2019-04-05 06:17] LABS: VBG PH 7.421 (7.31-7.41)
[2019-04-05] MEDS: LEVOTHYROXINE 75 MCG TABLET PO SCH (06:29)
[2019-04-05] MEDS: LEVOTHYROXINE 100 MCG TABLET PO SCH (06:29)
[2019-04-05] MEDS: SODIUM CHLORIDE 0.9% 1,000 ML IV SCH (07:04)
[2019-04-05] MEDS: INSULIN ASPART 300 UNIT/3 ML PEN SUBQ SCH ×4 (08:10→21:24)
[2019-04-05] MEDS: INSULIN GLARGINE 300 UNIT/3 ML PEN SUBQ SCH ×2 (08:12→21:26)
[2019-04-05] MEDS: VANCOMYCIN INJ 1 GM, VANCOMYCIN INJ 500 MG in SODIUM CHLORIDE 0.9% 500 ML IV SCH ×2 (08:15→20:27)
[2019-04-05] MEDS: CLOPIDOGREL 75 MG TABLET PO SCH (08:20)
[2019-04-05] MEDS: LISINOPRIL 5 MG TABLET PO SCH (08:21)
[2019-04-05] MEDS: MULTIVITAMIN TABLET PO SCH (08:22)
--- NOTE | 2019-04-05 10:41 | HISTORY & PHYSICAL EXAMINATION ---
Chief Complaint - Chief Complaint Chief Complaint: left foot infection History of Present Illness - History of Present Illness HPI Comment/Other: Mr. Hargrove is a 68-year-old male with a PMH significant for diabetic with chronic foot wounds, HTN, TIA, hypothyroidism who was seen here yesterday for fever, and was called to be back to hospital because 2 blood cultures were positive. pt report he had left big toe infection for at least three months. He had right foot infection before, now which was cured. Patient States he is feeling better since starting antibiotics on yesterday. Patient and family requested to be transferred to [facility] as his doctors are there. ER provider called [facility] for potential transfer. But they are unable to accept the transfer at this time. pt is afebrile in ER. Xray of left foot reveals no acute radiographic abnormalities. pt was admitted for above medical condition. History - Past Medical History Cardiovascular: reports: High cholesterol Respiratory: reports: None Neuro: reports: TIA Endocrine/Autoimmune: reports: Type 2 diabetes, HyPOthyroidism GI: reports: C.difficile : reports: Benign prostate hypertrophy HEENT: reports: Chronic vision loss Psych: reports: None Musculoskeletal: reports: None Derm: reports: None MRSA Hx?: Yes - Past Surgical History General: reports: Appendectomy, Splenectomy HEENT: reports: Tonsil/Adenoidectomy Derm: reports: Debridement - Family & Social History Social History Notes: pt denies cigrarett smoking, alcohol and drug abuse - POLST Patient has POLST: No Meds/Allgy - Home Medications Home Medications: Ambulatory Orders Medication Instructions Recorded Confirmed Cholecalciferol [Vitamin D3] 2,000 units PO DAILY 04/23/13 04/04/19 Insulin Glargine,Hum.rec.anlog 30 units SUBQ BID 04/23/13 04/04/19 [Lantus] Lisinopril 10 mg PO DAILY 04/23/13 04/04/19 Multivitamin [Multivitamins] 1 each PO DAILY 04/23/13 04/04/19 Clopidogrel [Plavix] 75 mg PO DAILY 01/22/18 04/04/19 cephALEXin [Cephalexin] 500 mg PO Q8HR #20 tablet 04/03/19 04/04/19 Atorvastatin Calcium 80 mg PO DAILY 04/04/19 04/04/19 Cyanocobalamin (Vitamin B-12) 1,000 mcg PO DAILY 04/04/19 04/04/19 [Vitamin B-12] Insulin Lispro [Humalog] 10 - 30 units SUBQ AC 04/04/19 04/04/19 Levothyroxine Sodium 175 mcg PO QDAC 04/04/19 04/04/19 - Allergies Allergies/Adverse Reactions: Allergies Allergy/AdvReac Type Severity Reaction Status Date / Time No Known Drug Allergies Allergy Verified 04/04/19 16:02 Review of Systems - Constitutional Constitutional: reports: Fever, Chills. denies: Fatigue, Malaise, Weakness, Poor appetite, Diaphoresis, Night sweats - Eyes Eyes: denies: Pain, Irritation, Amaurosis, Blurred vision, Spots in vision, Field loss, Vision loss, Dipolpia - Ears, Nose & Throat Ears, Nose & Throat: denies: Ear pain, Hearing loss, Hearing aids, Tinnitus, Vertigo, Nasal pain, Nasal discharge, Nosebleeds, Nasal obstruction, Nasal congestion, Postnasal drainage, Dentures, Sore throat, Hoarseness, Mouth les ions, Bleeding gums - Cardiovascular Cariovascular: denies: Irregular heart rate, Palpitations, Chest pain, Edema, Lightheadedness, Syncope, Exertional dyspnea, Decr. exercise tolerance - Respiratory Respiratory: denies: Cough, Sputum production, Wheezing, Snoring, Hemoptysis, Orthopnea, SOB at rest, SOB with exertion - Gastrointestinal Gastrointestinal: denies: Abdominal pain, Abdominal distention, Constipation, Diarrhea, Change in bowel habits, Rectal bleeding, Black stools, Bloody stools, Nausea, Vomiting, Bile emesis, Michael blood emesis, Coffee grounds emesis, Reflux/heartburn - Genitourinary Genitourinary: denies: Dysuria, Frequency, Urgency, Hematuria, Incontinence, Flank pain, Nocturia, Urethral discharge - Musculoskeletal Musculoskeletal: denies: Muscle pain, Back pain, Muscle aches, Stiffness, Limited range of motion, Muscle weakness, Gout, Joint pain - Integumentary Integumentary: reports: Rash. denies: Pruritis, Lesions, Dryness, Lumps, Acne, Pigment changes, Nail changes, Hair changes - Neurological Neurological: denies: General weakness, Focal weakness, Headache, Dizziness, Numbness, Memory problems, Pre-existing deficit, Abnormal gait, Seizures, Incoordination, Slurred speech - Psychiatric Psychiatric: denies: Depression, Anxiety, Suicidal, Delusions, Hallucinations, Homicidal - Endocrine Endocrine: denies: Polyuria, Polydypsia, Polyphagia, Intolerance to cold - Hematologic/Lymphatic Hematologic/Lymphatic: denies: Anemia, Bruising, Petechiae, Blood clots, Lymphadenopathy, Bleeding tendencies Exam - Vital Signs Reviewed Vital Signs: Yes Vital Signs: Vital Signs x48h Temp Pulse Pulse Resp BP Pulse Ox 04/05/19 07:44 37.1 C 84 18 131/58 H 93 04/05/19 05:24 36.5 C 66 20 97 - Physical Exam General Appearance: positive: No acute distress, Alert. negative: Lethargic Eyes Bilateral: positive: Normal inspection, PERRL, No lid inflammation, Conjunctivae nml ENT: positive: ENT inspection nml, Pharynx nml, No signs of dehydration. negative: Purulent nasal drainage, Pharyngeal erythema, Oral lesions Neck: positive: Nml inspection, Thyroid nml, No JVD, Trachea midline. negative: Thyromegaly, Lymphadenopathy (R), Lymphadenopathy (L), Stiff neck, Swelling/bruising, Tracheal deviation Respiratory: positive: Chest non-tender, No respiratory distress, Breath sounds nml. negative: Wheezes, Rales, Rhonchi Cardiovascular: positive: Regular rate & rhythm, No murmur, No gallop. negative: Irregularly irregular, Extrasystoles, Tachycardia, Bradycardia, JVD present, Systolic murmur, Diastolic murmur Peripheral Pulses: positive: 2+ Abdomen: positive: Non-tender, No organomegaly, Nml bowel sounds, No distention. negative: Tenderness, Guarding, Rebound Back: positive: Nml inspection. negative: CVA tenderness (R), CVA tenderness (L) Skin: positive: Color nml, Warm, Dry, Skin rash. negative: No rash, Cyanosis, Diaphoresis, Pallor Extremities: negative: Nml appearance, Calf tenderness, Joint swelling, Renetta's sign/cords Neurologic/Psychiatric: positive: Oriented x3, Sensation nml, Mood/affect nml. negative: Weakness, Sensory loss, Facial droop, Slurred/abnml speech, Depressed mood/affect Sepsis Event Note (H) - Evaluation Current Stage of Sepsis: Ruled out Conclusion/Plan - Problem List (1) Bacteremia Conclusion/Plan: two blood tube show gram positive cocci, fever at home treat with antibiotics second blood culture is pending (2) Diabetic foot ulcer Conclusion/Plan: Xray of foot reveals no bony abnormality but ulcer show black scar tissue in the hole, pt report infection had at least three months treat with antibiotics MRI on Sunday no drainage, no wound culture now may have would care consult if opened Qualifiers: Diabetic foot ulcer location: toe Diabetes mellitus type: type 2 Laterality: left Non-pressure ulcer stage: limited to breakdown of skin Qualified Code(s): E11.621 - Type 2 diabetes mellitus with foot ulcer; L97.521 - Non-pressure chronic ulcer of other part of left foot limited to breakdown of skin (3) Cellulitis of left foot Conclusion/Plan: cellulitis around the ulcer infection, erythema, and warm, mild swelling continue antibiotics followup blood culture and sensitivity study (4) Hyponatremia Conclusion/Plan: it seem from hyerglycemia and dehydration with hyponatremia IVF of NS continue lab monitor (5) Diabetes Conclusion/Plan: pt had Lantus 30 unit Bid in home, continue slide scale, hypoglycemia protocol (6) Hx of TIA (transient ischemic attack) and stroke Conclusion/Plan: pt has hx of TIA and stroke, continue Plavix and Lipitor (8) HTN (hypertension) Conclusion/Plan: stable, continue Lisinopril continue vital monitor - Lab Results Fish Bones: 04/05/19 05:20 04/05/19 05:20 Core Measures - Anticipated LOS I expect patient to be DC'd or transferred within 96 hours.: Yes - DVT/VTE - Prophylaxis VTE/DVT Device ordered at admit?: Yes VTE/DVT Prophylaxis med ordered at admit?: Yes
[2019-04-05] MEDS: POLYETHYLENE GLYCOL 3350 17 GM PACKET PO SCH (13:45)
[2019-04-05] MEDS: ATORVASTATIN 40 MG TABLET PO SCH (21:23)
[2019-04-05] MEDS: ACETAMINOPHEN 325 MG TABLET PO PRN (21:31)
[2019-04-05] MEDS: TEMAZEPAM 15 MG CAPSULE PO PRN (23:03)
[2019-04-05] MEDS ORDERED: SODIUM CHLORIDE 0.9% 500 ML IV ONE (23:04)
[2019-04-06] MEDS: SODIUM CHLORIDE FLUSH 0.9% 10 ML SYRINGE IVP SCH ×3 (01:14→17:19)
[2019-04-06 05:20] LABS: BASOPHILS # (AUTO) 0.1 10^3/uL (0.0-0.1); BASOPHILS % (AUTO) 0.3 %; EOSINOPHILS # (AUTO) 0.4 10^3/uL (0.0-0.7); EOSINOPHILS % (AUTO) 2.3 %; HGB - HEMOGLOBIN 12.3 g/dL (14.0-18.0); LYMPHOCYTES % (AUTO) 12.2 %; MEAN CORPUSCULAR HEMOGLOBIN 29.5 pg (27.0-31.0); MEAN CORPUSCULAR HGB CONC 33.8 g/dL (32.0-36.0); MEAN CORPUSCULAR VOLUME 87.3 fL (80.0-94.0); MEAN PLATELET VOLUME 8.8 fL (7.4-11.4); MONOCYTES # (AUTO) 1.9 10^3/uL (0.0-1.0); MONOCYTES % (AUTO) 11.3 %; NEUTROPHILS # (AUTO) 12.2 10^3/uL (1.5-6.6); NEUTROPHILS % (AUTO) 73.9 %; PLT - PLATELET COUNT 337 10^3/uL (130-450); RED BLOOD COUNT 4.16 10^6/uL (4.70-6.10); RED CELL DISTRIBUTION WIDTH 14.5 % (12.0-15.0); WHITE BLOOD COUNT 16.4 x10^3/uL (4.8-10.8)
[2019-04-06 05:25] LABS: BUN - BLOOD UREA NITROGEN 13 mg/dL (6-20); CALCIUM 8.2 mg/dL (8.5-10.3); CARBON DIOXIDE - CO2 27 mmol/L (21-32); CHLORIDE 98 mmol/L (101-111); CREATININE 0.7 mg/dL (0.6-1.2); GFR - MDRD 112 (>89); GLUCOSE 173 mg/dL (70-100); SODIUM 135 mmol/L (135-145)
[2019-04-06 05:35] LABS: VBG PH 7.372 (7.31-7.41)
[2019-04-06] MEDS: MEROPENEM 1 GM in SODIUM CHLORIDE 0.9% MINIBAG 100 ML IV SCH (06:02)
[2019-04-06] MEDS: LEVOTHYROXINE 75 MCG TABLET PO SCH (06:03)
[2019-04-06] MEDS: LEVOTHYROXINE 100 MCG TABLET PO SCH (06:03)
[2019-04-06] MEDS: SODIUM CHLORIDE FLUSH 0.9% 10 ML SYRINGE IVP PRN ×2 (06:05→12:35)
[2019-04-06 07:49] LABS: VANCOMYCIN,TROUGH 9.6 ug/mL (10.0-20.0)
[2019-04-06] MEDS ORDERED: CARBOXYMETHYLCELLULOSE OPHTH DROPS EACHEYE PRN (07:49)
[2019-04-06] MEDS: ACETAMINOPHEN 325 MG TABLET PO PRN (07:56)
[2019-04-06] MEDS: INSULIN ASPART 300 UNIT/3 ML PEN SUBQ SCH ×4 (08:00→21:41)
[2019-04-06] MEDS ORDERED: POTASSIUM CHLORIDE 20 MEQ TABLET PO ONE (08:00)
[2019-04-06] MEDS: INSULIN GLARGINE 300 UNIT/3 ML PEN SUBQ SCH ×2 (08:01→21:42)
[2019-04-06] MEDS: CLOPIDOGREL 75 MG TABLET PO SCH (09:00)
[2019-04-06] MEDS: MULTIVITAMIN TABLET PO SCH (09:00)
[2019-04-06] MEDS: LISINOPRIL 5 MG TABLET PO SCH (09:00)
[2019-04-06] MEDS ORDERED: SODIUM CHLORIDE 0.9% 0 ML IV ONE (09:04)
[2019-04-06] MEDS ORDERED: VANCOMYCIN 1 GM VIAL ONE (09:04)
[2019-04-06] MEDS: VANCOMYCIN INJ 1 GM, VANCOMYCIN INJ 500 MG in SODIUM CHLORIDE 0.9% 500 ML IV SCH (09:08)
[2019-04-06] MEDS: POLYETHYLENE GLYCOL 3350 17 GM PACKET PO SCH (09:08)
[2019-04-06] MEDS: CLINDAMYCIN IV 900 MG/50 ML IV SCH ×2 (12:33→18:45)
--- NOTE | 2019-04-06 15:32 | PROVIDER PROGRESS NOTE ---
Subjective - Prog Note Date Prog Note Date: 04/06/19 - Subjective Pt reports feeling: Improved Subjective: left foot infection is better, erythema, swelling, and warm are reduced. However pt's WBC is up to 16 from 10. pt denies fever, chill, chest pain, shortness of breath. Current Medications - Current Medications Current Medications: Active Medications Acetaminophen (Tylenol) 650 mg PO Q4HR PRN PRN Reason: Pain 1 to 4 Last Admin: 04/06/19 07:56 Dose: 650 mg Atorvastatin Calcium (Lipitor) 80 mg PO QPM [facility] Last Admin: 04/05/19 21:23 Dose: 80 mg Carboxymethylcellulose (Refresh 1% Ophth Drops) 1 drops EACHEYE PRN PRN PRN Reason: Dry Eye Last Admin: 04/06/19 09:42 Dose: 1 drops Clopidogrel Bisulfate (Plavix) 75 mg PO DAILY [facility] Last Admin: 04/06/19 09:00 Dose: 75 mg Clindamycin Phosphate (Cleocin 900 Mg/50 Ml) 50 mls @ 50 mls/hr IV Q6HR [facility] Last Infusion: 04/06/19 14:28 Dose: Infused Insulin Aspart (Novolog) 2 - 10 unit SUBQ 0800,1200,1700,2100 HUNG; Protocol Last Admin: 04/06/19 12:33 Dose: 4 unit Insulin Glargine (Lantus Solostar) 30 unit SUBQ QDBREAKFAST [facility] Last Admin: 04/06/19 08:01 Dose: 30 unit Insulin Glargine (Lantus Solostar) 30 unit SUBQ QPM [facility] Last Admin: 04/05/19 21:26 Dose: 30 unit Levothyroxine Sodium (Synthroid) 100 mcg PO QDAC [facility] Last Admin: 04/06/19 06:03 Dose: 100 mcg Levothyroxine Sodium (Synthroid) 75 mcg PO QDAC [facility] Last Admin: 04/06/19 06:03 Dose: 75 mcg Lisinopril (Zestril) 10 mg PO DAILY [facility] Last Admin: 04/06/19 09:00 Dose: 10 mg Morphine Sulfate (Morphine) 2 mg IVP Q2H PRN PRN Reason: Pain 8 to 10 Multivitamins (Theragran) 1 tab PO DAILY [facility] Last Admin: 04/06/19 09:00 Dose: 1 tab Ondansetron HCl (Zofran Inj) 4 mg IVP Q6HR PRN PRN Reason: Nausea / Vomiting Oxycodone HCl (Roxicodone) 5 mg PO Q4HR PRN PRN Reason: Pain 5 to 7 Polyethylene Glycol (Miralax) 17 gm PO DAILY [facility] Last Admin: 04/06/19 09:08 Dose: 17 gm Saccharomyces Boulardii (Florastor) 500 mg PO BIDWM [facility] Sodium Chloride (Normal Saline Flush 0.9%) 10 ml IVP PRN PRN PRN Reason: NEEDED PER PROVIDER ORDERS Last Admin: 04/06/19 12:35 Dose: 10 ml Sodium Chloride (Normal Saline Flush 0.9%) 10 ml IVP 0100,0900,1700 [facility] Last Admin: 04/06/19 09:11 Dose: Not Given Temazepam (Restoril) 15 mg PO QPM PRN PRN Reason: Insomnia Last Admin: 04/05/19 23:03 Dose: 15 mg Cholecalciferol [Vitamin D3] 2,000 units PO DAILY 04/23/13 Insulin Glargine,Hum.rec.anlog [Lantus] 30 units SUBQ BID 04/23/13 Lisinopril 10 mg PO DAILY 04/23/13 Multivitamin [Multivitamins] 1 each PO DAILY 04/23/13 Clopidogrel [Plavix] 75 mg PO DAILY 01/22/18 Atorvastatin Calcium 80 mg PO DAILY 04/04/19 Cyanocobalamin (Vitamin B-12) [Vitamin B-12] 1,000 mcg PO DAILY 04/04/19 Insulin Lispro [Humalog] 10 - 30 units SUBQ AC 04/04/19 Levothyroxine Sodium 175 mcg PO QDAC 04/04/19 Objective - Vital Signs/Intake & Output Reviewed Vital Signs: Yes Vital Signs: Vital Signs x48h Temp Pulse Resp BP Pulse Ox 04/06/19 07:48 36.6 C 61 17 121/67 97 Intake & Output: Intake & Output 04/03/19 04/04/19 04/05/19 04/06/19 23:59 23:59 23:59 23:59 Intake Total 1602.527 6609.667 1770.0 Balance 7027.557 0103.667 1770.0 - Objective General Appearance: positive: No acute distress, Alert. negative: Lethargic Eyes Bilateral: positive: Normal inspection, PERRL, No lid inflammation, Conjunctivae nml ENT: positive: ENT inspection nml, Pharynx nml, No signs of dehydration. negative: Purulent nasal drainage, Pharyngeal erythema, Oral lesions Neck: positive: Nml inspection, Thyroid nml, No JVD, Trachea midline. negative: Thyromegaly, Lymphadenopathy (R), Lymphadenopathy (L), Stiff neck, Swelling/bruising, Tracheal deviation Respiratory: positive: Chest non-tender, No respiratory distress, Breath sounds nml. negative: Wheezes, Rales, Rhonchi Cardiovascular: positive: Regular rate & rhythm, No murmur, No gallop. negative: Irregularly irregular, Extrasystoles, Tachycardia, Bradycardia, JVD present, Systolic murmur, Diastolic murmur Peripheral Pulses: 2+ Radial (R), 2+ Radial (L), 2+ Dorsalis pedis (R), 2+ Dorsalis pedis (L) Abdomen: positive: Non-tender, No organomegaly, Nml bowel sounds, No distention. negative: Tenderness, Guarding, Rebound Back: positive: Nml inspection. negative: CVA tenderness (R), CVA tenderness ( L) Skin: positive: Warm, Dry, Skin rash. negative: Cyanosis, Diaphoresis, Pallor Extremities: positive: Non-tender, Full ROM, Nml appearance. negative: Calf tenderness, Joint swelling, Renetta's sign/cords Neurologic/Psychiatric: positive: Oriented x3, Sensation nml, Mood/affect nml. negative: Weakness, Sensory loss, Facial droop, Slurred/abnml speech, Depressed mood/affect - Lab Results Fish Bones: 04/06/19 04:20 04/06/19 04:20 Other Labs: Lab Results x24hrs 04/06/19 04/06/19 04/06/19 Range/Units 11:56 09:30 07:52 WBC (4.8-10.8) x10^3/uL RBC (4.70-6.10) 10^6/uL Hgb (14.0-18.0) g/dL Hct (42.0-52.0) % MCV (80.0-94.0) fL MCH (27.0-31.0) pg MCHC (32.0-36.0) g/dL RDW (12.0-15.0) % Plt Count (130-450) 10^3/uL MPV (7.4-11.4) fL Neut # (Auto) (1.5-6.6) 10^3/uL Lymph # (Auto) (1.5-3.5) 10^3/uL Shasta # (Auto) (0.0-1.0) 10^3/uL Eos # (Auto) (0.0-0.7) 10^3/uL Baso # (Auto) (0.0-0.1) 10^3/uL Absolute Nucleated RBC x10^3/uL Nucleated RBC % /100WBC ESR (0-20) mm/Hr VBG pH (7.31-7.41) Ionized Calcium (1.15-1.33) mmol/L Sodium (135-145) mmol/L Potassium (3.5-5.0) mmol/L Chloride (101-111) mmol/L Carbon Dioxide (21-32) mmol/L Anion Gap (6-13) BUN (6-20) mg/dL Creatinine (0.6-1.2) mg/dL Estimated GFR (MDRD) (>89) Glucose (70-100) mg/dL POC Whole Bld Glucose 215 H 162 H (70 - 100) mg/dL Calcium (8.5-10.3) mg/dL TSH (0.34-5.60) uIU/mL Nasal Screen MRSA (PCR) NEGATIVE (NEGATIVE) Last Dose Date Last Dose Time Vancomycin Trough (10.0-20.0) ug/mL 04/06/19 04/06/19 04/06/19 Range/Units 07:30 04:20 04:20 WBC (4.8-10.8) x10^3/uL RBC (4.70-6.10) 10^6/uL Hgb (14.0-18.0) g/dL Hct (42.0-52.0) % MCV (80.0-94.0) fL MCH (27.0-31.0) pg MCHC (32.0-36.0) g/dL RDW (12.0-15.0) % Plt Count (130-450) 10^3/uL MPV (7.4-11.4) fL Neut # (Auto) (1.5-6.6) 10^3/uL Lymph # (Auto) (1.5-3.5) 10^3/uL Shasta # (Auto) (0.0-1.0) 10^3/uL Eos # (Auto) (0.0-0.7) 10^3/uL Baso # (Auto) (0.0-0.1) 10^3/uL Absolute Nucleated RBC x10^3/uL Nucleated RBC % /100WBC ESR (0-20) mm/Hr VBG pH 7.372 (7.31-7.41) Ionized Calcium 1.12 L (1.15-1.33) mmol/L Sodium (135-145) mmol/L Potassium (3.5-5.0) mmol/L Chloride (101-111) mmol/L Carbon Dioxide (21-32) mmol/L Anion Gap (6-13) BUN (6-20) mg/dL Creatinine (0.6-1.2) mg/dL Estimated GFR (MDRD) (>89) Glucose (70-100) mg/dL POC Whole Bld Glucose (70 - 100) mg/dL Calcium (8.5-10.3) mg/dL TSH 3.05 (0.34-5.60) uIU/mL Nasal Screen MRSA (PCR) (NEGATIVE) Last Dose Date UNK Last Dose Time UNK Vancomycin Trough 9.6 L (10.0-20.0) ug/mL 04/06/19 04/06/19 04/06/19 Range/Units 04:20 04:20 04:20 WBC 16.4 H (4.8-10.8) x10^3/uL RBC 4.16 L (4.70-6.10) 10^6/uL Hgb 12.3 L (14.0-18.0) g/dL Hct 36.3 L (42.0-52.0) % MCV 87.3 (80.0-94.0) fL MCH 29.5 (27.0-31.0) pg MCHC 33.8 (32.0-36.0) g/dL RDW 14.5 (12.0-15.0) % Plt Count 337 (130-450) 10^3/uL MPV 8.8 (7.4-11.4) fL Neut # (Auto) 12.2 H (1.5-6.6) 10^3/uL Lymph # (Auto) 2.0 (1.5-3.5) 10^3/uL Shasta # (Auto) 1.9 H (0.0-1.0) 10^3/uL Eos # (Auto) 0.4 (0.0-0.7) 10^3/uL Baso # (Auto) 0.1 (0.0-0.1) 10^3/uL Absolute Nucleated RBC 0.01 x10^3/uL Nucleated RBC % 0.1 /100WBC ESR 7 (0-20) mm/Hr VBG pH (7.31-7.41) Ionized Calcium YES (1.15-1.33) mmol/L Sodium 135 (135-145) mmol/L Potassium 3.4 L (3.5-5.0) mmol/L Chloride 98 L (101-111) mmol/L Carbon Dioxide 27 (21-32) mmol/L Anion Gap 10.0 (6-13) BUN 13 (6-20) mg/dL Creatinine 0.7 (0.6-1.2) mg/dL Estimated GFR (MDRD) 112 (>89) Glucose 173 H (70-100) mg/dL POC Whole Bld Glucose (70 - 100) mg/dL Calcium 8.2 L (8.5-10.3) mg/dL TSH (0.34-5.60) uIU/mL Nasal Screen MRSA (PCR) (NEGATIVE) Last Dose Date Last Dose Time Vancomycin Trough (10.0-20.0) ug/mL 04/05/19 04/05/19 Range/Units 20:49 16:37 WBC (4.8-10.8) x10^3/uL RBC (4.70-6.10) 10^6/uL Hgb (14.0-18.0) g/dL Hct (42.0-52.0) % MCV (80.0-94.0) fL MCH (27.0-31.0) pg MCHC (32.0-36.0) g/dL RDW (12.0-15.0) % Plt Count (130-450) 10^3/uL MPV (7.4-11.4) fL Neut # (Auto) (1.5-6.6) 10^3/uL Lymph # (Auto) (1.5-3.5) 10^3/uL Shasta # (Auto) (0.0-1.0) 10^3/uL Eos # (Auto) (0.0-0.7) 10^3/uL Baso # (Auto) (0.0-0.1) 10^3/uL Absolute Nucleated RBC x10^3/uL Nucleated RBC % /100WBC ESR (0-20) mm/Hr VBG pH (7.31-7.41) Ionized Calcium (1.15-1.33) mmol/L Sodium (135-145) mmol/L Potassium (3.5-5.0) mmol/L Chloride (101-111) mmol/L Carbon Dioxide (21-32) mmol/L Anion Gap (6-13) BUN (6-20) mg/dL Creatinine (0.6-1.2) mg/dL Estimated GFR (MDRD) (>89) Glucose (70-100) mg/dL POC Whole Bld Glucose 238 H 243 H (70 - 100) mg/dL Calcium (8.5-10.3) mg/dL TSH (0.34-5.60) uIU/mL Nasal Screen MRSA (PCR) (NEGATIVE) Last Dose Date Last Dose Time Vancomycin Trough (10.0-20.0) ug/mL ABX Reporting Has patient been on IV antibiotics over the past 48 hours?: Yes Sepsis Event Note (H) - Evaluation Current Stage of Sepsis: Ruled out Assessment/Plan - Problem List (1) Bacteremia Impression: 03/07 blood culture and sensitivity study reveals, one bacterial Strep Constel is positive which is sensitive to Clindamycin switch to Clindamycin, and hold Meropenem and Vancomyin second blood culture is negative preliminary two blood tube show gram positive cocci, fever at home treat with antibiotics second blood culture is pending (2) Diabetic foot ulcer Conclusion/Plan: 03/07 MRI on tomorrow. no MRI on weekend Xray of foot reveals no bony abnormality but ulcer show black scar tissue in the hole, pt report infection had at least three months treat with antibiotics MRI on Sunday no drainage, no wound culture now may have would care consult if opened (3) Cellulitis of left foot Conclusion/Plan: 03/07 improved, switch to Clindamycin according to culture study cellulitis around the ulcer infection, erythema, and warm, mild swelling continue antibiotics followup blood culture and sensitivity study (4) Hyponatremia Conclusion/Plan: resolved it seem from hyerglycemia and dehydration with hyponatremia IVF of NS continue lab monitor (5) Diabetes Conclusion/Plan: pt had Lantus 30 unit Bid in home, continue slide scale, hypoglycemia protocol (6) Hx of TIA (transient ischemic attack) and stroke Conclusion/Plan: pt has hx of TIA and stroke, continue Plavix and Lipitor (8) HTN (hypertension) Conclusion/Plan: stable, continue Lisinopril continue vital monitor (2) Diabetic foot ulcer Qualifiers: Diabetic foot ulcer location: toe Diabetes mellitus type: type 2 Laterality: left Non-pressure ulcer stage: limited to breakdown of skin Qualified Code(s): E11.621 - Type 2 diabetes mellitus with foot ulcer; L97.521 - Non-pressure chronic ulcer of other part of left foot limited to breakdown of skin
[2019-04-06] MEDS ORDERED: hydrALAZINE INJ 20 MG/ML VIAL IVP PRN (15:54)
[2019-04-06] MEDS: SACCHAROMYCES BOULARDII 250 MG CAPSULE PO SCH (17:18)
[2019-04-06] MEDS ORDERED: VANCOMYCIN INJ 1.75 GM in SODIUM CHLORIDE 0.9% 500 ML IV SCH (20:00)
[2019-04-06] MEDS: ATORVASTATIN 40 MG TABLET PO SCH (21:37)
[2019-04-06] MEDS: TEMAZEPAM 15 MG CAPSULE PO PRN (21:37)
[2019-04-07] MEDS: CLINDAMYCIN IV 900 MG/50 ML IV SCH ×3 (00:29→11:53)
[2019-04-07] MEDS: SODIUM CHLORIDE FLUSH 0.9% 10 ML SYRINGE IVP SCH ×3 (00:29→17:40)
[2019-04-07] MEDS: LEVOTHYROXINE 100 MCG TABLET PO SCH (05:10)
[2019-04-07] MEDS: LEVOTHYROXINE 75 MCG TABLET PO SCH (05:11)
[2019-04-07 05:18] LABS: BASOPHILS % (AUTO) 0.3 %; EOSINOPHILS # (AUTO) 0.4 10^3/uL (0.0-0.7); EOSINOPHILS % (AUTO) 3.4 %; HGB - HEMOGLOBIN 12.3 g/dL (14.0-18.0); LYMPHOCYTES # (AUTO) 2.1 10^3/uL (1.5-3.5); LYMPHOCYTES % (AUTO) 17.8 %; MEAN CORPUSCULAR HEMOGLOBIN 29.5 pg (27.0-31.0); MEAN CORPUSCULAR HGB CONC 34.3 g/dL (32.0-36.0); MEAN CORPUSCULAR VOLUME 86.1 fL (80.0-94.0); MEAN PLATELET VOLUME 8.3 fL (7.4-11.4); MONOCYTES # (AUTO) 2.1 10^3/uL (0.0-1.0); MONOCYTES % (AUTO) 17.9 %; NEUTROPHILS % (AUTO) 60.6 %; PLT - PLATELET COUNT 344 10^3/uL (130-450); RED BLOOD COUNT 4.18 10^6/uL (4.70-6.10); RED CELL DISTRIBUTION WIDTH 14.5 % (12.0-15.0); WHITE BLOOD COUNT 11.5 x10^3/uL (4.8-10.8)
[2019-04-07 05:26] LABS: BUN - BLOOD UREA NITROGEN 12 mg/dL (6-20); CALCIUM 8.5 mg/dL (8.5-10.3); CARBON DIOXIDE - CO2 26 mmol/L (21-32); CHLORIDE 94 mmol/L (101-111); CREATININE 0.7 mg/dL (0.6-1.2); GFR - MDRD 112 (>89); GLUCOSE 227 mg/dL (70-100); SODIUM 132 mmol/L (135-145)
[2019-04-07] MEDS: SACCHAROMYCES BOULARDII 250 MG CAPSULE PO SCH ×2 (07:46→17:37)
[2019-04-07] MEDS: CLOPIDOGREL 75 MG TABLET PO SCH (07:46)
[2019-04-07] MEDS: MULTIVITAMIN TABLET PO SCH (07:47)
[2019-04-07] MEDS: POLYETHYLENE GLYCOL 3350 17 GM PACKET PO SCH (07:47)
[2019-04-07] MEDS: LISINOPRIL 5 MG TABLET PO SCH (07:47)
[2019-04-07] MEDS: INSULIN ASPART 300 UNIT/3 ML PEN SUBQ SCH ×4 (07:48→21:00)
[2019-04-07] MEDS: INSULIN GLARGINE 300 UNIT/3 ML PEN SUBQ SCH ×2 (07:49→21:03)
[2019-04-07] MEDS ORDERED: GADOBUTROL 10 MMOL/10 ML VIAL ONE (16:48)
[2019-04-07] MEDS ORDERED: GADOBUTROL 10 MMOL/10 ML VIAL IVP ONE (16:51)
--- NOTE | 2019-04-07 17:07 | MRI Report ---
Reason: DM foot infection/osteomylitis Procedure Date: 04/07/2019 Accession Number: [id number] / [id number] Procedure: MRI - Foot LT W/WO CPT Code: FULL RESULT: EXAM: LEFT FOREFOOT MRI WITHOUT AND WITH CONTRAST EXAM DATE: 04/07/2019 04:55 PM. CLINICAL HISTORY: Diabetes mellitis foot infection/osteomyelitis. COMPARISON: 04/04/2019 radiograph. TECHNIQUE: Multiplanar, multisequence T1-weighted and fluid-sensitive sequences of the forefoot before and after administration of intravenous contrast. IV contrast: 9.5 mL Gadavist. Other: None. FINDINGS: Bones: The patient has had a prior bunionectomy. Severe osteophyte formation is in the first metatarsophalangeal joint. This is associated with some periarticular marrow edema and a small effusion. Although marrow edema is seen within the proximal and distal phalanges of the first toe, it does not have any low T1 signal to indicate osteomyelitis as yet. No fractures. Joints: No subluxations. There is a mild effusion of the first metatarsophalangeal joint. The [id number] complex is unremarkable. The visualized plantar plates are unremarkable. Articular Cartilage: Severe cartilage thinning is in the first metatarsophalangeal joint. Ligaments: The visualized collateral ligaments are intact. Tendons: The flexor and extensor tendons are unremarkable. Musculature: There is severe fatty atrophy in the intrinsic musculature of the forefoot with mild edema. Other: No Mortons neuroma. No intermetatarsal bursitis. The patient has an ulceration in the medial portion of the distal first toe. This is associated with adjacent cellulitis. There is some emphysema. No drainable fluid collections. IMPRESSION: 1. Cellulitis of the forefoot with ulceration of the first toe. 2. Reactive marrow edema in the proximal and distal phalanges without definite osteomyelitis as yet. This may reflect a precursor to osteomyelitis. 3. Severe osteoarthritis of the first metatarsophalangeal joint. RADIA
--- NOTE | 2019-04-07 17:20 | PROVIDER PROGRESS NOTE ---
Subjective - Prog Note Date Prog Note Date: 04/07/19 - Subjective Pt reports feeling: Improved Subjective: pt's left foot infection improved, erythema and swelling are reduced. but pt had DM foot infection for over 3 months, had black scar tissue at the bottom of first toe. MRI will be done on today, and is pending now. Current Medications - Current Medications Current Medications: Active Medications Acetaminophen (Tylenol) 650 mg PO Q4HR PRN PRN Reason: Pain 1 to 4 Last Admin: 04/06/19 07:56 Dose: 650 mg Atorvastatin Calcium (Lipitor) 80 mg PO QPM [facility] Last Admin: 04/06/19 21:37 Dose: 80 mg Carboxymethylcellulose (Refresh 1% Ophth Drops) 1 drops EACHEYE PRN PRN PRN Reason: Dry Eye Last Admin: 04/06/19 09:42 Dose: 1 drops Clindamycin HCl (Cleocin) 450 mg PO Q6HR [facility] Clopidogrel Bisulfate (Plavix) 75 mg PO DAILY [facility] Last Admin: 04/07/19 07:46 Dose: 75 mg Hydralazine HCl (Apresoline Inj) 10 mg IVP Q6H PRN PRN Reason: Hypertensive Emergency Insulin Aspart (Novolog) 3 - 11 unit SUBQ 0800,1200,1700,2100 [facility]; Protocol Last Admin: 04/07/19 11:32 Dose: 7 unit Insulin Glargine (Lantus Solostar) 30 unit SUBQ QDBREAKFAST [facility] Last Admin: 04/07/19 07:49 Dose: 30 unit Insulin Glargine (Lantus Solostar) 30 unit SUBQ QPM [facility] Last Admin: 04/06/19 21:42 Dose: 30 unit Levothyroxine Sodium (Synthroid) 100 mcg PO QDAC [facility] Last Admin: 04/07/19 05:10 Dose: 100 mcg Levothyroxine Sodium (Synthroid) 75 mcg PO QDAC [facility] Last Admin: 04/07/19 05:11 Dose: 75 mcg Lisinopril (Zestril) 10 mg PO DAILY [facility] Last Admin: 04/07/19 07:47 Dose: 10 mg Morphine Sulfate (Morphine) 2 mg IVP Q2H PRN PRN Reason: Pain 8 to 10 Multivitamins (Theragran) 1 tab PO DAILY [facility] Last Admin: 04/07/19 07:47 Dose: 1 tab Ondansetron HCl (Zofran Inj) 4 mg IVP Q6HR PRN PRN Reason: Nausea / Vomiting Oxycodone HCl (Roxicodone) 5 mg PO Q4HR PRN PRN Reason: Pain 5 to 7 Polyethylene Glycol (Miralax) 17 gm PO DAILY [facility] Last Admin: 04/07/19 07:47 Dose: 17 gm Saccharomyces Boulardii (Florastor) 500 mg PO BIDWM [facility] Last Admin: 04/07/19 07:46 Dose: 500 mg Sodium Chloride (Normal Saline Flush 0.9%) 10 ml IVP PRN PRN PRN Reason: NEEDED PER PROVIDER ORDERS Last Admin: 04/06/19 12:35 Dose: 10 ml Sodium Chloride (Normal Saline Flush 0.9%) 10 ml IVP 0100,0900,1700 [facility] Last Admin: 04/07/19 07:47 Dose: 10 ml Temazepam (Restoril) 15 mg PO QPM PRN PRN Reason: Insomnia Last Admin: 04/06/19 21:37 Dose: 15 mg Cholecalciferol [Vitamin D3] 2,000 units PO DAILY 04/23/13 Insulin Glargine,Hum.rec.anlog [Lantus] 30 units SUBQ BID 04/23/13 Lisinopril 10 mg PO DAILY 04/23/13 Multivitamin [Multivitamins] 1 each PO DAILY 04/23/13 Clopidogrel [Plavix] 75 mg PO DAILY 01/22/18 Atorvastatin Calcium 80 mg PO DAILY 04/04/19 Cyanocobalamin (Vitamin B-12) [Vitamin B-12] 1,000 mcg PO DAILY 04/04/19 Insulin Lispro [Humalog] 10 - 30 units SUBQ AC 04/04/19 Levothyroxine Sodium 175 mcg PO QDAC 04/04/19 Objective - Vital Signs/Intake & Output Reviewed Vital Signs: Yes Vital Signs: Vital Signs x48h Temp Pulse Resp BP Pulse Ox 04/07/19 15:44 36.6 C 62 16 179/75 H 98 Intake & Output: Intake & Output 04/04/19 04/05/19 04/06/19 04/07/19 23:59 23:59 23:59 23:59 Intake Total 5606.475 3791.667 2420.0 1250 Balance 2840.444 1251.667 2420.0 1250 - Objective General Appearance: positive: No acute distress, Alert. negative: Lethargic Eyes Bilateral: positive: Normal inspection, PERRL, No lid inflammation, Conjunctivae nml ENT: positive: ENT inspection nml, Pharynx nml, No signs of dehydration. negative: Purulent nasal drainage, Pharyngeal erythema, Oral lesions Neck: positive: Nml inspection, Thyroid nml, No JVD, Trachea midline. negative: Thyromegaly, Lymphadenopathy (R), Lymphadenopathy (L), Stiff neck, Swelling/bruising, Tracheal deviation Respiratory: positive: Chest non-tender, No respiratory distress, Breath sounds nml. negative: Wheezes, Rales, Rhonchi Cardiovascular: positive: Regular rate & rhythm, No murmur, No gallop. negative: Irregularly irregular, Extrasystoles, Tachycardia, Bradycardia, JVD present, Systolic murmur, Diastolic murmur Peripheral Pulses: 2+ Radial (R), 2+ Radial (L), 2+ Dorsalis pedis (R), 2+ Dorsalis pedis (L) Abdomen: positive: Non-tender, No organomegaly, Nml bowel sounds, No distention. negative: Tenderness, Guarding, Rebound Back: positive: Nml inspection. negative: CVA tenderness (R), CVA tenderness (L) Skin: positive: Warm, Dry. negative: Cyanosis, Diaphoresis, Pallor Extremities: negative: Calf tenderness, Joint swelling, Renetta's sign/cords Neurologic/Psychiatric: positive: Oriented x3, Sensation nml, Mood/affect nml. negative: Weakness, Sensory loss, Facial droop, Slurred/abnml speech, Depressed mood/affect - Lab Results Fish Bones: 04/07/19 05:07 04/07/19 05:07 Other Labs: Lab Results x24hrs 04/07/19 04/07/19 04/07/19 Range/Units 17:11 11:09 07:18 WBC (4.8-10.8) x10^3/uL RBC (4.70-6.10) 10^6/uL Hgb (14.0-18.0) g/dL Hct (42.0-52.0) % MCV (80.0-94.0) fL MCH (27.0-31.0) pg MCHC (32.0-36.0) g/dL RDW (12.0-15.0) % Plt Count (130-450) 10^3/uL MPV (7.4-11.4) fL Neut # (Auto) (1.5-6.6) 10^3/uL Lymph # (Auto) (1.5-3.5) 10^3/uL [place] # (Auto) (0.0-1.0) 10^3/uL Eos # (Auto) (0.0-0.7) 10^3/uL Baso # (Auto) (0.0-0.1) 10^3/uL Absolute Nucleated RBC x10^3/uL Nucleated RBC % /100WBC ESR (0-20) mm/Hr Sodium (135-145) mmol/L Potassium (3.5-5.0) mmol/L Chloride (101-111) mmol/L Carbon Dioxide (21-32) mmol/L Anion Gap (6-13) BUN (6-20) mg/dL Creatinine (0.6-1.2) mg/dL Estimated GFR (MDRD) (>89) Glucose (70-100) mg/dL POC Whole Bld Glucose 274 H 246 H 192 H (70 - 100) mg/dL Calcium (8.5-10.3) mg/dL Ionized Calcium 04/07/19 04/07/19 04/07/19 Range/Units 05:07 05:07 05:07 WBC 11.5 H (4.8-10.8) x10^3/uL RBC 4.18 L (4.70-6.10) 10^6/uL Hgb 12.3 L (14.0-18.0) g/dL Hct 36.0 L (42.0-52.0) % MCV 86.1 (80.0-94.0) fL MCH 29.5 (27.0-31.0) pg MCHC 34.3 (32.0-36.0) g/dL RDW 14.5 (12.0-15.0) % Plt Count 344 (130-450) 10^3/uL MPV 8.3 (7.4-11.4) fL Neut # (Auto) 7.0 H (1.5-6.6) 10^3/uL Lymph # (Auto) 2.1 (1.5-3.5) 10^3/uL [place] # (Auto) 2.1 H (0.0-1.0) 10^3/uL Eos # (Auto) 0.4 (0.0-0.7) 10^3/uL Baso # (Auto) 0.0 (0.0-0.1) 10^3/uL Absolute Nucleated RBC 0.01 x10^3/uL Nucleated RBC % 0.1 /100WBC ESR 9 (0-20) mm/Hr Sodium 132 L (135-145) mmol/L Potassium 3.5 (3.5-5.0) mmol/L Chloride 94 L (101-111) mmol/L Carbon Dioxide 26 (21-32) mmol/L Anion Gap 12.0 (6-13) BUN 12 (6-20) mg/dL Creatinine 0.7 (0.6-1.2) mg/dL Estimated GFR (MDRD) 112 (>89) Glucose 227 H (70-100) mg/dL POC Whole Bld Glucose (70 - 100) mg/dL Calcium 8.5 (8.5-10.3) mg/dL Ionized Calcium NO 04/06/19 Range/Units 20:44 WBC (4.8-10.8) x10^3/uL RBC (4.70-6.10) 10^6/uL Hgb (14.0-18.0) g/dL Hct (42.0-52.0) % MCV (80.0-94.0) fL MCH (27.0-31.0) pg MCHC (32.0-36.0) g/dL RDW (12.0-15.0) % Plt Count (130-450) 10^3/uL MPV (7.4-11.4) fL Neut # (Auto) (1.5-6.6) 10^3/uL Lymph # (Auto) (1.5-3.5) 10^3/uL [place] # (Auto) (0.0-1.0) 10^3/uL Eos # (Auto) (0.0-0.7) 10^3/uL Baso # (Auto) (0.0-0.1) 10^3/uL Absolute Nucleated RBC x10^3/uL Nucleated RBC % /100WBC ESR (0-20) mm/Hr Sodium (135-145) mmol/L Potassium (3.5-5.0) mmol/L Chloride (101-111) mmol/L Carbon Dioxide (21-32) mmol/L Anion Gap (6-13) BUN (6-20) mg/dL Creatinine (0.6-1.2) mg/dL Estimated GFR (MDRD) (>89) Glucose (70-100) mg/dL POC Whole Bld Glucose 237 H (70 - 100) mg/dL Calcium (8.5-10.3) mg/dL Ionized Calcium ABX Reporting Has patient been on IV antibiotics over the past 48 hours?: Yes Sepsis Event Note (H) - Evaluation Current Stage of Sepsis: Ruled out Assessment/Plan - Problem List (1) Bacteremia Impression: 03/08 second blood culture is negative. WBC is down to 11.6 from 16 according to first blood culture and sensitivity study, Clindamycin is chosen for treatment continue Clindamycin 03/07 blood culture and sensitivity study reveals, one bacterial Strep Constel is positive which is sensitive to Clindamycin switch to Clindamycin, and hold Meropenem and Vancomyin second blood culture is negative preliminary two blood tube show gram positive cocci, fever at home treat with antibiotics second blood culture is pending (2) Diabetic foot ulcer Conclusion/Plan: 03/08 MRI was delay and will have the result on this afternoon or night, will followup closely for choose the antibiotics and treatment plan 03/07 MRI on tomorrow. no MRI on Xray of foot reveals no bony abnormality but ulcer show black scar tissue in the hole, pt report infection had at least three months treat with antibiotics MRI on Sunday no drainage, no wound culture now may have would care consult if opened (3) Cellulitis of left foot Conclusion/Plan: 03/08 WBC is down, continue Clindamycin 03/07 improved, switch to Clindamycin according to culture study cellulitis around the ulcer infection, erythema, and warm, mild swelling continue antibiotics followup blood culture and sensitivity study (4) Hyponatremia Conclusion/Plan: resolved it seem from hyerglycemia and dehydration with hyponatremia IVF of NS continue lab monitor (5) Diabetes Conclusion/Plan: pt had Lantus 30 unit Bid in home, continue slide scale, hypoglycemia protocol (6) Hx of TIA (transient ischemic attack) and stroke Conclusion/Plan: pt has hx of TIA and stroke, continue Plavix and Lipitor (7) hypothyroidism TSH is normal, continue home synthyroxine (8) HTN (hypertension) Conclusion/Plan: stable, continue Lisinopril continue vital monitor (2) Diabetic foot ulcer Qualifiers: Diabetic foot ulcer location: toe Diabetes mellitus type: type 2 Laterality: left Non-pressure ulcer stage: limited to breakdown of skin Qualified Code(s): E11.621 - Type 2 diabetes mellitus with foot ulcer; L97.521 - Non-pressure chronic ulcer of other part of left foot limited to breakdown of skin
[2019-04-07] MEDS: CLINDAMYCIN 150 MG CAPSULE PO SCH (17:37)
[2019-04-07] MEDS: ATORVASTATIN 40 MG TABLET PO SCH (20:59)
[2019-04-07] MEDS: TEMAZEPAM 15 MG CAPSULE PO PRN (20:59)
[2019-04-08] MEDS: CLINDAMYCIN 150 MG CAPSULE PO SCH ×2 (00:40→06:07)
[2019-04-08] MEDS: SODIUM CHLORIDE FLUSH 0.9% 10 ML SYRINGE IVP SCH ×2 (00:40→08:53)
[2019-04-08] MEDS: LEVOTHYROXINE 100 MCG TABLET PO SCH (06:07)
[2019-04-08] MEDS: LEVOTHYROXINE 75 MCG TABLET PO SCH (06:07)
[2019-04-08 08:03] VITALS: BP 151/73
[2019-04-08] MEDS: INSULIN ASPART 300 UNIT/3 ML PEN SUBQ SCH (08:07)
[2019-04-08] MEDS: SACCHAROMYCES BOULARDII 250 MG CAPSULE PO SCH (08:07)
[2019-04-08] MEDS: INSULIN GLARGINE 300 UNIT/3 ML PEN SUBQ SCH (08:07)
[2019-04-08 08:22] LABS: BASOPHILS % (AUTO) 0.4 %; EOSINOPHILS # (AUTO) 0.2 10^3/uL (0.0-0.7); EOSINOPHILS % (AUTO) 1.9 %; LYMPHOCYTES # (AUTO) 1.7 10^3/uL (1.5-3.5); LYMPHOCYTES % (AUTO) 14.8 %; MEAN CORPUSCULAR HEMOGLOBIN 28.8 pg (27.0-31.0); MEAN CORPUSCULAR HGB CONC 33.8 g/dL (32.0-36.0); MEAN CORPUSCULAR VOLUME 85.3 fL (80.0-94.0); MEAN PLATELET VOLUME 8.5 fL (7.4-11.4); MONOCYTES # (AUTO) 1.3 10^3/uL (0.0-1.0); MONOCYTES % (AUTO) 11.6 %; NEUTROPHILS % (AUTO) 71.3 %; PLT - PLATELET COUNT 419 10^3/uL (130-450); RED BLOOD COUNT 4.53 10^6/uL (4.70-6.10); RED CELL DISTRIBUTION WIDTH 14.3 % (12.0-15.0); WHITE BLOOD COUNT 11.2 x10^3/uL (4.8-10.8)
[2019-04-08 08:26] LABS: ALBUMIN 3.2 g/dL (3.2-5.5); ALBUMIN/GLOBULIN RATIO 0.9 (1.0-2.2); BILIRUBIN,TOTAL 0.9 mg/dL (0.2-1.0); CALCIUM 8.7 mg/dL (8.5-10.3); CREATININE 0.7 mg/dL (0.6-1.2); MAGNESIUM 2.2 mg/dL (1.7-2.8); TOTAL PROTEIN 6.7 g/dL (6.7-8.2)
[2019-04-08] MEDS: CLOPIDOGREL 75 MG TABLET PO SCH (08:53)
[2019-04-08] MEDS: MULTIVITAMIN TABLET PO SCH (08:53)
[2019-04-08] MEDS ORDERED: LISINOPRIL 20 MG TABLET PO SCH (09:00)
[2019-04-08] MEDS: POLYETHYLENE GLYCOL 3350 17 GM PACKET PO SCH (09:02)
--- NOTE | 2019-04-08 09:55 | Discharge Plan ---
Discharge Plan Disposition: Home, Self Care Condition: Poor Prescriptions: Cephalexin [Keflex] 500 mg PO TID #21 capsule Lisinopril 20 mg PO DAILY #15 tablet Saccharomyces Boulardii [Florastor] 250 mg PO BID #14 capsule Diet: Diabetic Activity Restrictions: Activity as Tolerated Shower Restrictions: No (fall precaution) Instruction Topics: Cephalexin tablets or capsules, Lisinopril tablets, Diabetes Treat Severe Foot Infecs Additional Instructions or Follow Up instructions: you may followup your PCP in one week, and see your share holder after tomorrow as your schedule. Keflex antibiotics is chosen for continuing antibiotics treatment according to the blood culture and sensitivity study. Lisinopril is increased to 20 mg daily, please followup your PCP to continue the management. Should your symptoms return or worsen, you may present ER, call 911 or your PCP for help No Smoking: If you smoke, Please STOP! Call for help. Follow-up with: Harry He MD [Primary Care Provider] -
--- NOTE | 2019-04-08 10:11 | DISCHARGE SUMMARY ---
Discharge Summary Discharge Date: 04/08/19 Discharging Provider: CHIU Primary Care Provider: Harry Charlton Condition at Discharge: Poor Discharge Disposition: 01 Home, Self Care Discharge Facility Name: home - DIAGNOSES Admission Diagnoses: (1) Bacteremia (2) Diabetic foot ulcer (3) Cellulitis of left foot (4) Hyponatremia (5) Diabetes (6) Hx of TIA (transient ischemic attack) and stroke (7) HTN (hypertension) Discharge Diagnoses with Status of Each Condition: (1) Bacteremia (2) Diabetic foot ulcer (3) Cellulitis of left foot (4) Hyponatremia (5) Diabetes (6) Hx of TIA (transient ischemic attack) and stroke (7) HTN (hypertension) (8) hypothyroidism - HPI History of Present Illness: Mr. Hargrove is a 68-year-old male with a PMH significant for diabetic with ch ronic foot wounds, HTN, TIA, hypothyroidism who was seen here yesterday for fever, and was called to be back to hospital because 2 blood cultures were positive. pt report he had left big toe infection for at least three months. He had right foot infection before, now which was cured. Patient States he is feeling better since starting antibiotics on yesterday. Patient and family requested to be transferred to [place] as his doctors are there. ER provider called [place] for potential transfer. But they are unable to accept the transfer at this time. pt is afebrile in ER. Xray of left foot reveals no acute radiographic abnormalities. pt was admitted for above medical condition. - HOSPITAL COURSE Hospital Course: (1) Bacteremia resolved. the second blood culture is negative, pt has no fever, chill. pt is prescribed Keflex according to the first blood culture and sensitivity study Keflex was prescribed by ER provider before. pt reported he took for one day, and he reported he felt better after he took the antibiotics. (2) Diabetic foot ulcer Great improved. swelling and warmth were resolved. erythema was significantly reduced. There is no drainage or opened wound. MRI reveals no osteomyelitis at this time. pt will followup his chief nursing executive after tomorrow in [place]/. pt is prescribed antibiotics (3) Cellulitis of left foot Great improved. swelling and warmth were resolved. erythema was significantly reduced. (4) Hyponatremia Na 132, improved, followup PCP (5) Diabetes pt had A1C 8.0, continue home insulin regimen and followup PCP management. (6) Hx of TIA (transient ischemic attack) and stroke stable, continue home regimen (7) HTN (hypertension) slight elevated BP, increase his home Lisinopril from 10 mg to 20 mg daily, followup his PCP to manage (8) hypothyroidism TSH is normal, continue home meds regimen. - ALLERGIES Allergies/Adverse Reactions: Allergies Allergy/AdvReac Type Severity Reaction Status Date / Time No Known Drug Allergies Allergy Verified 04/04/19 16:02 - MEDICATIONS Home Medications: Ambulatory Orders Medication Instructions Recorded Confirmed Cholecalciferol [Vitamin D3] 2,000 units PO DAILY 04/23/13 04/04/19 Insulin Glargine,Hum.rec.anlog 30 units SUBQ BID 04/23/13 04/04/19 [Lantus] Multivitamin [Multivitamins] 1 each PO DAILY 04/23/13 04/04/19 Clopidogrel [Plavix] 75 mg PO DAILY 01/22/18 04/04/19 cephALEXin [Cephalexin] 500 mg PO Q8HR #20 tablet 04/03/19 04/04/19 Atorvastatin Calcium 80 mg PO DAILY 04/04/19 04/04/19 Cyanocobalamin (Vitamin B-12) 1,000 mcg PO DAILY 04/04/19 04/04/19 [Vitamin B-12] Insulin Lispro [Humalog] 10 - 30 units SUBQ AC 04/04/19 04/04/19 Levothyroxine Sodium 175 mcg PO QDAC 04/04/19 04/04/19 Cephalexin [Keflex] 500 mg PO TID #21 capsule 04/08/19 Lisinopril 20 mg PO DAILY #15 tablet 04/08/19 Saccharomyces Boulardii [Florastor] 250 mg PO BID #14 capsule 04/08/19 - PHYSICAL EXAM AT DISCHARGE General Appearance: positive: No acute distress, Alert. negative: Lethargic Eyes Bilateral: positive: Normal inspection, PERRL, No lid inflammation, Conjunctivae nml ENT: positive: ENT inspection nml, Pharynx nml, No signs of dehydration. neg ative: Purulent nasal drainage, Pharyngeal erythema, Oral lesions Neck: positive: Nml inspection, Thyroid nml, No JVD, Trachea midline. negative: Thyromegaly, Lymphadenopathy (R), Lymphadenopathy (L), Stiff neck, Swelling/bruising, Tracheal deviation Respiratory: positive: Chest non-tender, No respiratory distress, Breath sounds nml. negative: Wheezes, Rales, Rhonchi Cardiovascular: positive: Regular rate & rhythm, No murmur, No gallop. negative: Irregularly irregular, Extrasystoles, Tachycardia, Bradycardia, JVD present, Systolic murmur, Diastolic murmur Peripheral Pulses: positive: 2+ Abdomen: positive: Non-tender, No organomegaly, Nml bowel sounds, No distention. negative: Tenderness, Guarding, Rebound Back: positive: Nml inspection. negative: CVA tenderness (R), CVA tenderness (L) Skin: positive: Color nml, Warm, Dry. negative: Cyanosis, Diaphoresis, Pallor Extremities: positive: Non-tender. negative: Calf tenderness, Joint swelling, Renetta's sign/cords Neurologic/Psychiatric: positive: Oriented x3, Sensation nml, Mood/affect nml. negative: Weakness, Sensory loss, Facial droop, Slurred/abnml speech, Depressed mood/affect - LABS Result Diagrams: 04/08/19 08:07 04/08/19 08:07 - SEPSIS Current Stage of Sepsis: Ruled out - FOLLOW UP Follow Up: you may followup your PCP in one week, and see your chief nursing executive after tomorrow as your schedule. Keflex antibiotics is chosen for continuing antibiotics treatment according to the blood culture and sensitivity study. Lisinopril is increased to 20 mg daily, please followup your PCP to continue the management. Should your symptoms return or worsen, you may present ER, call 911 or your PCP for help - TIME SPENT Time Spent in Discharge (Minutes): 55
== END 2019-04-08 11:00 | disposition home or self-care (01) | DRG 872 ==
LOC: ED 15:31 → MS3 16:43 → MS2 04-07 20:39
PROVIDERS: ADMIT Nurse Practitioner Gerontology; ATTEND Nurse Practitioner Gerontology
DX: R78.81 Bacteremia (principal); L03.116 Cellulitis of left lower limb; E87.1 Hypo-osmolality and hyponatremia; E11.621 Type 2 diabetes mellitus with foot ulcer; L97.521 Non-pressure chronic ulcer of other part of left foot limited to breakdown of skin; L03.032 Cellulitis of left toe; B95.4 Other streptococcus as the cause of diseases classified elsewhere; E86.0 Dehydration; E11.65 Type 2 diabetes mellitus with hyperglycemia; I10 Essential (primary) hypertension; E78.00 Pure hypercholesterolemia, unspecified; E03.9 Hypothyroidism, unspecified; Z86.19 Personal history of other infectious and parasitic diseases; Z86.14 Personal history of Methicillin resistant Staphylococcus aureus infection; Z86.73 Personal history of transient ischemic attack (TIA), and cerebral infarction without residual deficits; Z90.81 Acquired absence of spleen; Z79.4 Long term (current) use of insulin; Z79.899 Other long term (current) drug therapy; Z79.02 Long term (current) use of antithrombotics/antiplatelets
CPT/HCPCS: 36415; 73630; 73720; 80048; 80053; 80202; 81003; 82330; 83036; 83605; 83690; 83735; 84443; 85025; 85651; 86140; 87040; 87640; 99283; 99284; A9270; A9585; J1815; J2185; J3370; 81001; 87086; 99282

== ENCOUNTER 2020-09-03 06:52 | Outpatient (CLI) | payer MEDICARE, OTHER ==
--- NOTE | 2020-09-03 09:44 | Ultrasound Report ---
PROCEDURE: Duplex Lwr Ext Arterial LT INDICATIONS: OPEN WOUND LOWER LEFT LEG TECHNIQUE: Color and pulse Doppler interrogation was performed of the left lower extremity arterial system, with image documentation. COMPARISON: None FINDINGS: Common femoral artery: 105.4 cm/sec, with triphasic flow. Deep femoral artery: 50.9 cm/sec, with triphasic flow. Proximal superficial femoral artery: 101.4 cm/sec, with triphasic flow. Mid superficial femoral artery: 99.1 cm/sec, with triphasic flow. Distal superficial femoral artery: 60.4 cm/sec, with triphasic/biphasic flow. Popliteal artery: 100.2 cm/sec, with triphasic flow. Posterior tibial artery: 72.3 cm/sec, with biphasic flow. Anterior tibial artery/dorsalis pedis: 49.0/74.6 cm/sec, with biphasic/biphasic flow. Dupont-scale imaging description: There is diffuse plaque from the common femoral through the distal r unoff. There is straight line flow. There is at least two-vessel runoff. No hemodynamically significa nt stenosis. All waveforms biphasic or triphasic. IMPRESSION: 1. Diffuse plaque from the common femoral through the distal runoff. 2. No hemodynamically significant stenoses identified. 3. At least two-vessel runoff. Reviewed by: Arron Borja MD on 09/03/2020 9:42 AM PDT Approved by: Arron Borja MD on 09/03/2020 9:42 AM PDT Station ID: [id number]
--- NOTE | 2020-09-03 12:10 | Ultrasound Report ---
PROCEDURE: Abdomen Limited INDICATIONS: ELEVATED LIVER ENZYMES LEVEL TECHNIQUE: Real-time focused scanning was performed of the abdomen, with image documentation. COMPARISON: CT abdomen and pelvis 10/22/2014 FINDINGS: 1. Liver is normal in size. Liver is diffusely echogenic. No focal hepatic mass lesions. Gallbladder sonographically normal. No gallstones. No gallbladder wall thickening with gallbladder wa ll measuring 2.0 mm. No pericholecystic fluid. No sonographic Gibson's sign. Biliary tree is nondilated. Common hepatic duct measures 3 mm. Pancreas not well-visualized due to bowel gas and cannot be evaluated. Intrahepatic IVC is patent. IMPRESSION: 1. Echogenic liver. Finding typically represents hepatic steatosis, however the finding is nonspecifi c and other etiologies including hepatic cirrhosis can produce a similar appearance. 2. Gallbladder sonographically normal with no evidence of cholelithiasis or cholecystitis. Reviewed by: Myrna Vera MD, PhD on 09/03/2020 11:08 AM [facility] Approved by: Myrna Vera MD, PhD on 09/03/2020 11:08 AM [facility] Station ID: [id number]
== END 2020-09-03 06:53 | disposition home or self-care (01) ==
LOC: DI 06:52
PROVIDERS: ATTEND Nurse Practitioner Family
DX: R74.8 Abnormal levels of other serum enzymes (principal); K76.9 Liver disease, unspecified; S81.802A Unspecified open wound, left lower leg, initial encounter; I70.202 Unspecified atherosclerosis of native arteries of extremities, left leg
CPT/HCPCS: 76705

== ENCOUNTER 2024-07-22 08:00 | Outpatient (CLI) | payer MEDICARE, OTHER ==
--- NOTE | 2024-07-23 13:32 | XRAY Report ---
PROCEDURE: Chest 2V INDICATIONS: ACUTE COUGH TECHNIQUE: 2 views of the chest were acquired. COMPARISON: Chest x-ray 10/22/2014 FINDINGS: Surgical changes and devices: None. Lungs and pleura: No pleural effusions or pneumothorax. Lungs are clear. Mediastinum: Mediastinal contours appear normal. Heart size is mildly prominent. Bones and chest wall: No suspicious bony lesions. Overlying soft tissues appear unremarkable. IMPRESSION: No acute cardiopulmonary process. Reviewed by: Aida Pelletier MD on 07/23/2024 1:31 PM PDT Approved by: Aida Pelletier MD on 07/23/2024 1:31 PM PDT Station ID: [id number]
== END 2024-07-22 23:59 | disposition home or self-care (01) ==
LOC: DI.S 08:00
PROVIDERS: ATTEND Registered Nurse
DX: R05.1 Acute cough (principal)